=== PATIENT | female | born 1975 | race Caucasian/White ===

== ENCOUNTER → 2017-04-15 13:18 | Outpatient (CLI) | payer MEDICAID, SELFPAY ==
--- NOTE | 2017-04-15 13:27 | HPBI_ITS ---
MAMMOGRAPHY - BILATERAL DIAGNOSTIC REASON FOR EXAM: Female, 41 years old. Right breast pain for one month. PERTINENT HISTORY: Non-contributory. TECHNIQUE: Digital bilateral breast gabriela (3D mammographic acquisition) in the CC and MLO projections. 2-D mediolateral oblique (MLO) and craniocaudad (CC) views of both breasts were obtained. CAD: Full Field Digital Mammography with Computer Added Detection was performed. COMPARISON: None. Baseline examination. FINDINGS: Breast Composition: There are scattered areas of fibroglandular density. There are no dominant masses or suspicious calcifications. No other significant abnormalities are identified. HPBI/DIAG MAMM W/CAD, BILAT IMPRESSION: Negative diagnostic mammogram. With the patient's history of left breast pain, correlation with ultrasound is recommended. ASSESSMENT CATEGORY: BIRADS Category 0: Incomplete. Need additional imaging evaluation. A letter regarding these results will be sent to the patient by the facility within 30 days. Approximately 10% of breast cancers are not detected by mammography. A normal mammogram should not delay biopsy of a clinically suspicious abnormality. Electronically Signed: Justo Segundo MD at 14:42 EST Tel [phone], Service support ,
--- NOTE | 2017-04-15 13:41 | US_ITS ---
STUDY: ULTRASOUND BREAST - RIGHT REASON FOR EXAM: Female, 41 years old. Right breast pain. TECHNIQUE: Axial and longitudinal images of the RIGHT breast were performed with a high resolution ultrasound transducer. COMPARISON: Comparison is made with prior mammogram done earlier in the day. FINDINGS: RIGHT Breast: The upper outer quadrant of the right breast was examined by ultrasound. There is homogeneous fibroglandular tissue. No solid or cystic mass lesion is seen. US/Breast Limited Unilateral IMPRESSION: Unremarkable sonographic examination of the right breast. ASSESSMENT CATEGORY: BIRADS Category 1: Negative. A letter regarding these results will be sent to the patient by the facility within 30 days. Electronically Signed: Justo Segundo MD at 14:43 EST Tel [phone], Service support ,
== END ==
PROVIDERS: Family Provider Nurse Practitioner Family
DX: N64.4 Mastodynia (principal)
CPT/HCPCS: 76642; 77062; 77066; G0279

== ENCOUNTER → 2017-04-20 12:20 | Outpatient (CLI) | payer MEDICAID, SELFPAY ==
--- NOTE | 2017-04-20 12:28 | US_ITS ---
US Thyroid (eg thyroid, parathyroid, parotid) INDICATION: NODULE COMPARISON: None TECHNIQUE: Ultrasonographic grayscale and limited Doppler investigation of the thyroid gland FINDINGS: The right lobe of the thyroid measures 5.8 x 2.3 x 1.9 cm and is heterogenous. 2 nodules are seen, measuring 0.8 x 0.8 cm and 0.9 x 0.9 cm. The nodules are solid and appear well circumscribed. The left lobe of the thyroid measures 5.8 x 2.6 x 2.2 cm and is heterogenous. 2 solid nodules are identified measuring 1.7 x 1.8 and 2.0 x 1.3 cm. The nodules are solid with irregular margins. The isthmus measures 8 mm in thickness and contains 2 nodules, measuring 0.7 x 0.8 and 2.1 x 1.9 cm. US/Thyroid IMPRESSION: Prominent thyroid with multiple nodules suggestive of multinodular goiter. Further evaluation with nuclear medicine thyroid uptake scan is recommended. at 2013 Reported and signed by: Laney Ramirez MD Electronically Signed: Laney Ramirez MD at 19:12 EST Tel , Service support ,
--- NOTE | 2017-04-20 12:50 | US_ITS ---
US Pelvis Non-OB Complete INDICATION: ABNL UT BLEEDING COMPARISON: None TECHNIQUE: Ultrasonographic grayscale Doppler duplex investigation of the pelvic structures via transabdominal and transvaginal approach FINDINGS: The uterus is anteverted and measures 7.1 x 4.4 x 3.7 cm with a 4 mm endometrial stripe. The myometrium appears slightly heterogenous with a few small calcifications. No well-circumscribed fibroid is seen. The right ovary measures 2.8 x 2 x 2.1 cm and appears unremarkable with normal flow. The left ovary is surgically absent. There is no evidence of free fluid. US/Transvaginal Non- IMPRESSION: 4 mm endometrial stripe. A few myometrial calcifications without clearly circumscribed fibroid. Status post left oophorectomy. at 2017 Reported and signed by: Laney Ramirez MD Electronically Signed: Laney Ramirez MD at 19:15 EST Tel , Service support ,
== END ==
PROVIDERS: Family Provider Nurse Practitioner Family
DX: E04.1 Nontoxic single thyroid nodule (principal); N93.9 Abnormal uterine and vaginal bleeding, unspecified
CPT/HCPCS: 76536; 76830; 93976

== ENCOUNTER → 2017-05-25 11:21 | Outpatient (CLI) | payer MEDICAID, SELFPAY ==
--- NOTE | 2017-05-25 09:00 | ASPS_PTH ---
PATIENT: CLAIR MACIEL LOC: [facility] U#:[id number] AGE/SX: 49/F ROOM: RE05/25/[address]: Dr. Markus Gonzáles MD : 1975 BED: DIS: SPEC #: [id number] RECD: 05/25/17 11:17 STATUS: PATRICIA DONTAE #: [id number] JESS: 05/25/17 09:[address]: Markus Gonzáles DEPT: CYTOLOGY RECD BY: Ariadna Cunningham ENTERED: 05/25/17 12:07 SP TYPE: ASPIRATION OTHR DR: Trisha Conteh, MARKETING LIAISON-C Tissues: A - Thyroid isthmus B - Thyroid gland, NOS Procedures: Pap Stain (control) Special Stain Group II Cytology Other HEADER OPERATION: Ultrasound guided fine needle aspiration, left thyroid and isthmus PRE-OP DIAGNOSIS: Multinodular goiter E04.2 TISSUE SUBMITTED: A. Fine needle aspiration, thyroid isthmus (12 slides), B. Fine needle aspiration, left thyroid (10 slides) DIAGNOSIS CYTOLOGY A. Thyroid isthmus, FNA (smears): Consistent with benign colloid nodule. See cytology study and comment. B. Left thyroid, FNA (smears): Consistent with benign colloid nodule. See cytology study and comment. SJ:rg 05/26/17 COMMENT Immediate cytologic evaluation to determine adequacy is not applicable. Correlation with clinical, radiologic findings and appropriate follow up are necessary. Case has been reviewed in consultation with Dr. Quintanilla who concurs with the above diagnosis. IDC:AM CYTOLOGY STUDY Slides are reviewed. A. The specimen is adequate for evaluation. The specimen consists of abundant colloid and benign follicular cells. B. The specimen is adequate for evaluation. The specimen consists of benign follicular cells and colloid. A few clusters of follicular cells with mild atypia is noted, favor reactive atypia associated with benign colloid nodule. CYTOLOGY GROSS A. Received are 12 smears labeled with the patient's name and designated per the requisition as FNA, thyroid isthmus. Submitted for staining. B. Received are 10 smears labeled with the patient's name and designated per the requisition as FNA, left thyroid. Submitted for staining. / Cleve:usman 05/25/17 TC:5 CPT: 41619 x2
== END ==
PROVIDERS: Visit Provider Surgery
DX: E04.2 Nontoxic multinodular goiter (principal)
CPT/HCPCS: 88161; 88313

== ENCOUNTER → 2017-09-23 13:55 | Outpatient (CLI) | payer MEDICAID, SELFPAY ==
--- NOTE | 2017-09-24 20:02 | LEAS ---
Arterial Study - Arterial Study Arterial Study: This is a 41-year-old female with a history of diabetes mellitus, hypertension, and smoking. The patient presents with paresthesias and cramping pain in her lower extremities, made worse with ambulation. Suspecting the presence of atherosclerotic peripheral arterial occlusive disease, patient was brought to the noninvasive vascular laboratory at this time for the purpose of bilateral noninvasive lower extremity arterial assessment. Due to vertigo, the patient did not undergo an exercise portion of this study. Doppler signal assessment was used to evaluate the pulses at ankle level bilaterally. The posterior tibial and dorsalis pedis pulses were triphasic bilaterally. Segmental limb pressures were obtained bilaterally. The right ankle pressure, as determined by posterior tibial pulse, was measured at 144 mmHg. The right ankle pressure, as determined by dorsalis pedis pulse, was measured at 141 mmHg. The right digital pressure was measured at 103 mmHg. The left ankle pressure, as determined by posterior tibial pulse, was measured at 151 mmHg. The left ankle pressure, as determined by dorsalis pedis pulse, was measured at 147 mmHg. The left digital pressure was measured at 114 mmHg. Pulse-volume recordings were obtained bilaterally and segmentally. Waveform amplitudes appeared to be satisfactory at all levels bilaterally, including low thigh, calf, ankle, and digital levels. Resting ankle-brachial indices were calculated bilaterally. The resting right ankle-brachial index was calculated to be 1.08. The resting left ankle-brachial index was calculated to be 1.14. Digital-brachial indices were calculated bilaterally. The right digital-brachial index was calculated to be 0.77. The left digital-brachial index was calculated to be 0.86. Impression: Based upon the findings of this resting noninvasive lower extremity arterial study, there is no evidence of significant atherosclerotic peripheral arterial occlusive disease in the lower extremities bilaterally. Triphasic waveforms were noted at ankle level bilaterally. Resting ankle-brachial indices were bilaterally normal. Digital-brachial indices were also normal bilaterally. In summary, this represents a normal resting noninvasive lower extremity arterial study bilaterally.
--- NOTE | 2017-09-24 20:10 | LEAS_ITS ---
Arterial Study - Arterial Study Arterial Study: This is a 41-year-old female with a history of diabetes mellitus, hypertension, and smoking. The patient presents with paresthesias and cramping pain in her lower extremities, made worse with ambulation. Suspecting the presence of atherosclerotic peripheral arterial occlusive disease, patient was brought to the noninvasive vascular laboratory at this time for the purpose of bilateral noninvasive lower extremity arterial assessment. Due to vertigo, the patient did not undergo an exercise portion of this study. Doppler signal assessment was used to evaluate the pulses at ankle level bilaterally. The posterior tibial and dorsalis pedis pulses were triphasic bilaterally. Segmental limb pressures were obtained bilaterally. The right ankle pressure, as determined by posterior tibial pulse, was measured at 144 mmHg. The right ankle pressure, as determined by dorsalis pedis pulse, was measured at 141 mmHg. The right digital pressure was measured at 103 mmHg. The left ankle pressure, as determined by posterior tibial pulse, was measured at 151 mmHg. The left ankle pressure, as determined by dorsalis pedis pulse, was measured at 147 mmHg. The left digital pressure was measured at 114 mmHg. Pulse-volume recordings were obtained bilaterally and segmentally. Waveform amplitudes appeared to be satisfactory at all levels bilaterally, including low thigh, calf, ankle, and digital levels. Resting ankle-brachial indices were calculated bilaterally. The resting right ankle-brachial index was calculated to be 1.08. The resting left ankle- brachial index was calculated to be 1.14. Digital-brachial indices were calculated bilaterally. The right digital- brachial index was calculated to be 0.77. The left digital-brachial index was calculated to be 0.86. Impression: Based upon the findings of this resting noninvasive lower extremity arterial study, there is no evidence of significant atherosclerotic peripheral arterial occlusive disease in the lower extremities bilaterally. Triphasic waveforms were noted at ankle level bilaterally. Resting ankle-brachial indices were bilaterally normal. Digital-brachial indices were also normal bilaterally. In summary, this represents a normal resting noninvasive lower extremity arterial study bilaterally.
== END ==
DX: E11.42 Type 2 diabetes mellitus with diabetic polyneuropathy (principal); E11.59 Type 2 diabetes mellitus with other circulatory complications
CPT/HCPCS: 93923

== ENCOUNTER 2018-02-18 13:28 | Outpatient (RCR) | payer MEDICAID, SELFPAY ==
--- NOTE | 2018-02-18 14:12 | HP.PTEVAL ---
Patient's Visit Information CLAIR MACIEL is a 42 year old F referred to Physical Therapy by Nguyen Elias MD with a diagnosis of vertigo. Date of Evaluation: 02/18/18 Physical Therapist: Dawit Kirkpatrick, HOWIET, OCS, CSCS - Visit Plan Frequency: not needed. Plan: No skilled PT required at this time. Pt has dizzy lightheaded symptoms with exertion and up from supine. Suspicious that her HTN meds changed just prior but with her symptoms combined with lack of cardiac workup since onset and lack of scan of head, I have recommended she return to doctor for next medical step. she will be contacting her free clinic and doctor Jada for next step and possibly check with pharmacist regarding her recent meds change in October of last year just prior to this onset. - Subjective Findings: Constant dizzyness, worse with strenuous activity like steps or laundry or walking > one block. Dizzyness feels like she may pass out or feet give out and room spins. This usually happens when heart rate goes up. Sitting still is not a problem. Not as lightheaded standing as walking. This has been happening for 5 months insidiously noticing it on the steps. She has not done CT or MRI when approved. He wants that also. No heart testing this year but did have it tested after palpitations and pain last year and had EKG and it was fine. Has depresion and anxiety prior to this dizzyness. Sleep is not great. But not worse due to dizzyness. Spends day staying at home with books and puzzles. Cleans house but gets winded easily and feels dizzy. Sleeps alot. Doctor tested for vertigo at [facility] and gave her medicine. Then sent to Neuro. No falls, no AD needed. Lives with nephew and mother. - Objective Transfers adn gait are normal on firm flat surface. - B hallpike and roll test today. Oculomotor: - skew eye deviation. convergence normal. pursuit saccades normal and asymptomatic. VOR asymptomatic and good. no nystagmus with gaze or head shake. Notably today slightly lightheaded sitting up from supine and after climbing steps. Pt hasd blood pressure med change just prior to onset of dizzyness and this is suspicious to me as is the symptoms with exertion. - Balance Scores Functional Gait Assessment Score: 28 % Disability: 6.6700 CATSIB Score (Max score 120 seconds): 120 - Rehabilitation Potential Physical Therapy Diagnosis: lightheaded especially with exertion, non vestibular dizzyness. - Anticipated Interventions Thank you for the opportunity to evaluate your patient. For Medicare and Medicare HMO plans, please review the plan of care and approve it. It will need to be FAXED BACK to us at [phone] for Medicare purposes. For Medicare only, by signing this I certify the plan of care. Please let me know if there are questions or concerns regarding this plan of care. Physician Signature: Date:
== END 2018-02-18 15:18 | disposition home or self-care (01) ==
LOC: PT 13:28
PROVIDERS: Referring Provider Psychiatry & Neurology Neurology; Visit Provider Psychiatry & Neurology Neurology
DX: R42 Dizziness and giddiness (principal)
CPT/HCPCS: 97162

== ENCOUNTER → 2019-03-27 12:32 | Outpatient (CLI) | payer MEDICAID, SELFPAY ==
--- NOTE | 2019-03-27 12:40 | RAD_ITS ---
STUDY: X-RAY CHEST REASON FOR EXAM: Female, 43 years old. COUGH, CHEST CONGESTION; -- HYPERGLYCEMIA TECHNIQUE: PA and lateral views of the chest. COMPARISON: None. FINDINGS: The lungs are clear and expanded. Scattered calcified granulomas. There is no demonstrated pleural abnormality. Normal size heart. Normal mediastinum and bobby. Normal visualized pulmonary arteries. Normal visualized aortic arch and descending thoracic aorta. Normal visualized thoracic spine. Normal visualized ribs, clavicles, and shoulders. There is no demonstrated abnormality of the visualized soft tissue structures of the upper abdomen. RAD/Chest PA and Lateral IMPRESSION: Normal x-ray examination of the chest. Electronically Signed: Justo Segundo, at 13:16 EST , Service support ,
== END ==
PROVIDERS: Referring Provider Nurse Practitioner Family; Visit Provider Nurse Practitioner Family
DX: E11.65 Type 2 diabetes mellitus with hyperglycemia (principal)
CPT/HCPCS: 71046

== ENCOUNTER → 2020-05-31 12:49 | Outpatient (CLI) | payer MEDICAID, SELFPAY ==
[2020-04-18 13:04] VITALS: BMI 45.8
--- NOTE | 2020-05-31 12:54 | CT_ITS ---
STUDY: CT ABDOMEN AND PELVIS WITHOUT CONTRAST REASON FOR EXAM: Female, 44 years old. RUQ ABD TENDERNESS. 2 week history of bilateral abdominal pain. RADIATION DOSAGE (If Supplied By Facility): CTDIvol = ( 22.71 ) mGy, DLP = ( 1289.41 ) mGycm TECHNIQUE: Transaxial images were obtained from the dome of the diaphragm to the symphysis pubis without oral contrast, and without intravenous contrast. Sagittal and coronal images were reconstructed. Individualized dose optimization techniques were used for this CT. COMPARISON: None. FINDINGS: The visualized lung bases are unremarkable. The visualized portions of the heart are within normal limits. Normal liver. The patient is status post cholecystectomy. Normal spleen. Normal pancreas. Normal bilateral adrenal glands. 3.3 mm nonobstructive calculus in the upper pole calyx of the right kidney. Normal left kidney. There is a small hiatal hernia. Normal small intestine. Normal colon. The appendix is visualized and appears normal. There is scattered atherosclerotic calcification of the abdominal aorta, without a demonstrated aneurysm. Normal inferior vena cava. Normal retroperitoneum. Normal urinary bladder. Normal abdominal wall. Straightening of the normal lumbar lordosis. Mild degree of disc space narrowing and spondylosis. CT/Abdomen/Pelvis without Cont IMPRESSION: 3.3 mm nonobstructive calculus in the upper pole calyx of the right kidney. Electronically Signed: Justo Segundo MD at 13:48 EDT , Service support ,
== END ==
DX: R10.811 Right upper quadrant abdominal tenderness (principal)
CPT/HCPCS: 74176

== ENCOUNTER → 2020-09-03 15:56 | Outpatient (CLI) | payer MEDICAID, SELFPAY ==
[2020-09-03 15:20] VITALS: BMI 45.8
[2020-09-03 17:06] LABS: Vitamin B12 379 pg/mL (211-911)
[2020-09-03 17:13] LABS: ALB/GLOB Ratio 0.9 RATIO (0.9-2.4); AST(SGOT) 21 U/L (15-37); Alanine Aminotransfer ALT/SGPT 37 U/L (13-56); Albumin, Serum 3.7 g/dL (3.2-5.0); Alkaline Phosphatase 68 U/L (45-117); Anion Gap 8 (5-15); BUN 13 mg/dL (7-18); BUN/Creat Ratio 12.4 RATIO (10-20); Calcium,Total 9.4 mg/dL (8.5-10.1); Chloride 102 mmol/L (98-107); Cholesterol 178 mg/dL (200); Creatinine, Serum 1.05 mg/dL (0.55-1.02); EST Glomerular Filtration Rate 60 mL/min (>60); Est Glom Filt Rate - Afr Amer 73 mL/min (>60); Glucose 212 mg/dL (74-106); High Density Lipoprotein 35 mg/dL; Potassium 3.8 mmol/L (3.5-5.1); Protein, Total 7.7 g/dL (6.4-8.2); Sodium Level 136 mmol/L (136-145); T4 Free Direct 1.32 ng/dL (0.76-1.46); Thyroid Stim Hormone (TSH) 0.38 uIU/mL (0.358-3.74); Triglycerides 297 mg/dL; Very Low Density Lipoprotein 59 mg/dL (5-40)
== END ==
PROVIDERS: Referring Provider Internal Medicine Endocrinology, Diabetes & Metabolism; Visit Provider Internal Medicine Endocrinology, Diabetes & Metabolism
DX: G62.9 Polyneuropathy, unspecified (principal); E03.9 Hypothyroidism, unspecified; E11.8 Type 2 diabetes mellitus with unspecified complications; E66.01 Morbid (severe) obesity due to excess calories; Z68.42 Body mass index [BMI] 45.0-49.9, adult
CPT/HCPCS: 36415; 80053; 80061; 82607; 84439; 84443

== ENCOUNTER → 2020-10-25 13:47 | Outpatient (CLI) | payer MEDICAID, SELFPAY ==
[2020-10-25 10:41] LABS: Absolute Lymphocyte Count 2.88 X10^3/uL (0.83-4.51); Absolute Neutrophil Count 5.3 X10^3/uL (2.0-7.7); Basophil# 0.08 X10^3/uL; Basophil% 0.8 % (0-1); Eosinophil# 0.73 X10^3/uL; Eosinophils% 7.2 % (0-5); Hematocrit 35.8 % (37-47); Hemoglobin 10.8 g/dL (12.0-15.0); Lymphocyte # 2.88 X10^3/ul (0.83-4.51); Lymphocyte % 28.4 % (19-41); Mean Corp Hgb Conc 30.2 g/dL (32-36); Mean Corpuscular Hgb 25.9 pg (27.0-32.0); Mean Corpuscular Volume 85.9 fL (81-99); Mean Platelet Vol. 10.1 fl (6.2-12.0); Monocyte# 0.73 X10^3/uL; Monocyte% 7.2 % (0-10); NRBC Flagged by Analyzer 0 % (0-5); Neutrophil # 5.27 X10^3/uL (2.7-7.7); Platelet Count 320 K/mm3 (150-450); RBC Distribution Width CV 14.7 % (11.6-14.6); RBC Distribution Width SD 46.4 fl (35.1-43.9); Red Blood Count 4.17 M/mm3 (4.2-5.4); White Blood Count 10.1 K/mm3 (4.4-11.0)
[2020-10-25 11:12] LABS: ALB/GLOB Ratio 0.8 RATIO (0.9-2.4); AST(SGOT) 20 U/L (15-37); Alanine Aminotransfer ALT/SGPT 39 U/L (13-56); Albumin, Serum 3.3 g/dL (3.2-5.0); Alkaline Phosphatase 56 U/L (45-117); Anion Gap 8 (5-15); BUN 9 mg/dL (7-18); BUN/Creat Ratio 10.8 RATIO (10-20); Calcium,Total 9.3 mg/dL (8.5-10.1); Chloride 100 mmol/L (98-107); Creatinine, Serum 0.84 mg/dL (0.55-1.02); EST Glomerular Filtration Rate 78 mL/min (>60); Est Glom Filt Rate - Afr Amer 95 mL/min (>60); Globulin 3.9 g/dL (2.2-4.2); Glucose 236 mg/dL (74-106); Lipase 193 U/L (73-393); Potassium 3.8 mmol/L (3.5-5.1); Protein, Total 7.2 g/dL (6.4-8.2); Sodium Level 136 mmol/L (136-145)
--- NOTE | 2020-10-25 13:49 | CT_ITS ---
STUDY: CT ABDOMEN AND PELVIS WITH CONTRAST REASON FOR EXAM: Female, 44 years old. RUQ/RLQ PAIN RADIATION DOSAGE (If Supplied By Facility): CTDIvol = ( 23.68 ) mGy, DLP = ( 1372.54 ) mGycm TECHNIQUE: Transaxial images were obtained from the dome of the diaphragm to the symphysis pubis with oral contrast. Oral and amp; IV Readi-CAT and amp; 100mL Isovue-300 was administered. Sagittal and coronal images were reconstructed. Individualized dose optimization techniques were used for this CT. COMPARISON: Comparison is made with prior examination dated 05/31/2020. FINDINGS: The visualized lung bases are unremarkable. The visualized portions of the heart are within normal limits. There is decreased attenuation of the liver consistent with steatosis. Mild hepatomegaly. The patient is status post cholecystectomy. Normal spleen. Normal pancreas. Normal bilateral adrenal glands. Stable 3 mm nonobstructive calculus in the upper pole calyx of the right kidney. Normal left kidney. There is a small hiatal hernia. Normal small intestine. Normal colon. The appendix is visualized and appears normal. There is scattered atherosclerotic calcification of the abdominal aorta, without a demonstrated aneurysm. Normal inferior vena cava. Normal retroperitoneum. Normal urinary bladder. Normal abdominal wall. Mild degree of disc space narrowing and spondylosis. CT/Abdomen/Pelvis WITH Contrast IMPRESSION: Mild hepatomegaly and diffuse fatty infiltration of the liver. Nonobstructive 3 mm calculus in the upper pole calyx of the right kidney. Electronically Signed: Justo Segundo MD at 15:07 EDT , Service support ,
[2020-10-25 14:30] LABS: CREATININE FINGERSTICK 1.1 mg/dL (0.55-1.02)
[2020-10-27 21:11] LABS: ANTINUCLEAR ANTIBODIES DIRECT Positive (Negative)
== END ==
PROVIDERS: Referring Provider Nurse Practitioner Adult Health; Visit Provider Nurse Practitioner Adult Health
DX: R10.811 Right upper quadrant abdominal tenderness (principal); R60.9 Edema, unspecified; R21 Rash and other nonspecific skin eruption
CPT/HCPCS: 36415; 74177; 80053; 83690; 85025; 86038; Q9967; A4216

== ENCOUNTER → 2020-10-29 14:45 | Outpatient (CLI) | payer MEDICAID, SELFPAY ==
[2020-10-29 17:09] LABS: Iron 53 ug/dL (50-170); Iron Binding Capacity,Total 369 ug/dL (250-450); PERCENT IRON SATURATION 14.4 % (15.0-55.0)
[2020-10-31 21:05] LABS: Transferrin 315 mg/dL (192-364)
== END ==
PROVIDERS: Referring Provider Nurse Practitioner Adult Health; Visit Provider Nurse Practitioner Adult Health
DX: D64.9 Anemia, unspecified (principal)
CPT/HCPCS: 36415; 83540; 83550; 84466

== ENCOUNTER → 2020-12-24 09:26 | Outpatient (CLI) | payer MEDICAID, SELFPAY ==
[2020-12-25 11:09] LABS: SJOGREN'S Anti-SS-A test < 0.2 AI (0.0-0.9); SJOGREN'S Anti-SS-B test < 0.2 AI (0.0-0.9)
[2020-12-25 13:48] LABS: Anti-dsDNA Ab 10 IU/mL (0-9)
[2020-12-25 14:23] LABS: Anti-Smooth Muscle ABS 4 Units (0-19)
== END ==
DX: R74.8 Abnormal levels of other serum enzymes (principal); R21 Rash and other nonspecific skin eruption; L80 Vitiligo
CPT/HCPCS: 36415; 83516; 86225; 86235

== ENCOUNTER → 2021-08-14 | Outpatient (CLI) | payer MEDICAID, SELFPAY ==
[2021-08-14 12:46] LABS: Absolute Lymphocyte Count 2.44 X10^3/uL (0.83-4.51); Absolute Neutrophil Count 4.7 X10^3/uL (2.0-7.7); Basophil# 0.01 X10^3/uL; Basophil% 0.1 % (0-1); Eosinophil# 0.45 X10^3/uL; Eosinophils% 5.4 % (0-5); Hematocrit 37.4 % (37-47); Hemoglobin 11.8 g/dL (12.0-15.0); Lymphocyte # 2.44 X10^3/ul (0.83-4.51); Lymphocyte % 29.5 % (19-41); Mean Corp Hgb Conc 31.6 g/dL (32-36); Mean Corpuscular Hgb 27.4 pg (27.0-32.0); Mean Platelet Vol. 10.5 fl (6.2-12.0); Monocyte# 0.57 X10^3/uL; Monocyte% 6.9 % (0-10); NRBC Flagged by Analyzer 0 % (0-5); Neutrophil # 4.68 X10^3/uL (2.7-7.7); Neutrophil % 56.8 % (47-70); Platelet Count 316 K/mm3 (150-450); RBC Distribution Width CV 14.4 % (11.6-14.6); RBC Distribution Width SD 45.3 fl (35.1-43.9); White Blood Count 8.3 K/mm3 (4.4-11.0)
[2021-08-14 13:21] LABS: Vitamin D,25 Hydroxy 26.7 ng/mL
[2021-08-14 13:34] LABS: ALB/GLOB Ratio 0.9 RATIO (0.9-2.4); AST(SGOT) 26 U/L (15-37); Alanine Aminotransfer ALT/SGPT 32 U/L (13-56); Albumin, Serum 3.4 g/dL (3.2-5.0); Alkaline Phosphatase 56 U/L (45-117); Anion Gap 10 (5-15); BUN 12 mg/dL (7-18); BUN/Creat Ratio 15.2 RATIO (10-20); Calcium,Total 9.3 mg/dL (8.5-10.1); Chloride 102 mmol/L (98-107); Creatinine, Serum 0.79 mg/dL (0.55-1.02); EST Glomerular Filtration Rate 83 mL/min (>60); Est Glom Filt Rate - Afr Amer 100 mL/min (>60); Globulin 3.6 g/dL (2.2-4.2); Glucose 161 mg/dL (74-106); Potassium 3.6 mmol/L (3.5-5.1); Sodium Level 139 mmol/L (136-145); T4 Free Direct 1.02 ng/dL (0.76-1.46); Thyroid Stim Hormone (TSH) 2.94 uIU/mL (0.358-3.74)
== END | disposition home or self-care (01) ==
LOC: BIMLAB 11:36
PROVIDERS: Referring Provider Internal Medicine Endocrinology, Diabetes & Metabolism; Visit Provider Internal Medicine Endocrinology, Diabetes & Metabolism
DX: E11.42 Type 2 diabetes mellitus with diabetic polyneuropathy (principal); I10 Essential (primary) hypertension; E66.9 Obesity, unspecified; E55.9 Vitamin D deficiency, unspecified
CPT/HCPCS: 36415; 80053; 82306; 84439; 84443; 85025

== ENCOUNTER 2021-11-20 14:31 | Emergency (ER) | payer MEDICAID, SELFPAY ==
[2021-11-20 14:32] VITALS: BP 179/107; PULSE 79; RESP 18; TEMP 36.6; O2SAT 97; BMI 44.1
--- NOTE | 2021-11-20 14:41 | RAD_ITS ---
STUDY: X-RAY - LEFT SHOULDER REASON FOR EXAM: Female, 46 years old. Shoulder pain. TECHNIQUE: 4 view(s) of the shoulder. COMPARISON: None. FINDINGS: Normal glenohumeral articulation. Normal acromioclavicular joint. Normal acromion. Normal humeral head and visualized proximal humerus. There is periarticular soft tissue calcification consistent with a calcific tendinitis. Normal visualized pulmonary apex. RAD/Shoulder min 2 Views IMPRESSION: Mild degree of calcific tendinitis. Electronically Signed: Justo Segundo MD at 14:56 EDT ,
--- NOTE | 2021-11-20 15:58 | EX.ED.UPPERE ---
HPI History of Present Illness Chief Complaint: Upper Extremity Injury Narrative Narrative: Patient with past medical history of diabetes, neuropathy, hypertension, presents with left shoulder pain that she has had for the last 3 to 4 days. 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 She has pain in her left shoulder area that is relieved by placing her arm above her head however. She states that when her arm is dangling to the side and it is pulling, she gets sharp pain, and also pain with certain movements. No fevers or chills. No other symptoms. She was taking Tylenol without relief but took an equate arthritis which did help with her pain somewhat. She is right-hand dominant. [facility] Medical History Acid reflux Alcohol abuse Anxiety Back problem Bone fracture Chronic bronchitis Chronic headaches Depression Diabetes Diarrhea Drug abuse Edema Gastroparesis H/O emotional problems H/O urinary tract infection Hypothyroidism Nausea Neuropathy PCOS (polycystic ovarian syndrome) Seasonal allergies Sleep apnea Thyroid nodule Vitiligo Vomiting Home Medications albuterol sulfate 90 mcg/actuation aerosol inhaler (Ventolin HFA) 2 puff inhalation Q6H 05/12/17 [History Last Taken Unknown] carvedilol 12.5 mg tablet 12.5 mg PO BID 05/12/17 [History Last Taken Unknown] gabapentin 300 mg capsule 300 mg PO TID 07/03/19 [History Last Taken Unknown] flash glucose scanning reader (FreeVidyoyle Yudy 2 [place]) #1 ea 11/30/19 [Rx Last Taken Unknown] glucose 4 gram chewable tablet 4 g PO Q15M PRN hypoglycemia #90 tabs 02/01/20 [Rx Last Taken Unknown] citalopram 40 mg tablet 40 mg PO DAILY 04/18/20 [History Last Taken Unknown] compr.stocking,knee,long,large #2 ea 04/18/20 [Rx Last Taken Unknown] levothyroxine 125 mcg tablet 125 mcg PO DAILY #30 tabs 07/09/20 [Rx Last Taken Unknown] insulin glargine 100 unit/mL (3 mL) subcutaneous pen (Lantus Solostar U-100 Insulin) 80 unit (0.8 mL) subcut DAILY #24 mL 09/06/20 [Rx Last Taken Unknown] ferrous sulfate 325 mg (65 mg iron) tablet ea PO 12/27/20 [History Last Taken Unknown] insulin aspart U-100 100 unit/mL (3 mL) subcutaneous pen (Novolog Flexpen U-100 Insulin aspart) 40 unit (0.4 mL) subcut TID #36 mL 01/13/21 [Rx Last Taken Unknown] vitamin B complex (B Complex-Vitamin B12 tablet) 1 tab PO DAILY #30 tabs 02/09/21 [Rx Last Taken Unknown] pen needle, diabetic 32 gauge x 5/32 (BD Ultra-Fine Angela Pen Needle) #150 ea 04/29/21 [Rx Last Taken Unknown] cholecalciferol (vitamin D3) 1,250 mcg (50,000 unit) capsule 1,250 mcg PO QWEEK #4 caps 08/14/21 [Rx Last Taken Unknown] losartan 100 mg tablet 100 mg PO DAILY #30 tabs 08/14/21 [Rx Last Taken Unknown] amitriptyline 50 mg tablet 50 mg PO QHS 09/03/21 [History Last Taken Unknown] furosemide 20 mg tablet 30 mg PO BID 09/03/21 [History Last Taken Unknown] metformin 1,000 mg tablet 1,000 mg PO DAILY 09/03/21 [History Last Taken Unknown] ondansetron HCl 8 mg tablet (Zofran) 8 mg PO .prn 09/03/21 [History Last Taken Unknown] pantoprazole 40 mg tablet,delayed release (Protonix) 40 mg PO DAILY 09/03/21 [History Last Taken Unknown] BinaxNOW COVID-19 Ag Card (COVID-19 antigen test) #1 ea 09/11/21 [Rx Last Taken Unknown] Trulicity 3 mg/0.5 mL subcutaneous pen injector (dulaglutide) 3 mg (0.5 mL) subcut QWEEK #2 mL 11/07/21 [Rx Last Taken Unknown] potassium chloride 10 mEq capsule,extended release ea PO 11/07/21 [History Last Taken Unknown] flash glucose sensor (FreeStyle Yudy 2 Sensor kit) #2 ea 11/10/21 [Rx Last Taken Unknown] cyclobenzaprine 10 mg tablet 10 mg PO TID PRN muscle spasm #20 tabs 11/20/21 [Rx Last Taken Unknown] Allergy/AdvReac Type Severity Reaction Status Date / Time aspirin Allergy Unknown Unknown Verified 11/20/21 14:34 Family History Father Diabetes Heart disease Hypertension COVID Mother Heart disease Hypertension Ulcer Sister Autoimmune disease vitiligo and lupus Diabetes Surgical History History of salpingectomy S/P cholecystectomy S/P left knee arthroscopy S/P removal of left ovary S/P thyroid biopsy (~05/2017) Social History household members: family current occupational status: employed 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 HEENT: No sore throat. No neck pain. No loss of vision. No rhinorrhea. Cardiovascular: No chest pain. No palpitations. No pedal edema. Respiratory: No cough, no shortness of breath. Abdominal: No abdominal pain. No nausea. No vomiting. Genitourinary: No dysuria. No hematuria. Musculoskeletal: No myalgias. Left shoulder pain worse with certain movements, and with arm at side. Neurologic: No headaches. No dizziness. No lightheadedness. Skin: No rash. No change in color. Psychiatric: No depression. No anxiety. EXAM Physical Exam Narrative Exam Narrative: Afebrile. Vital signs noted. HEENT: Normocephalic. Atraumatic. PERRL, EOMI. Neck soft and supple. No point tenderness or step off. Cardiovascular: Regular rate and rhythm. No murmurs, rubs, or gallops appreciated. Respiratory: No tachypnea. Lungs clear to auscultation bilaterally. Gastrointestinal: Abdomen soft, nontender, with normoactive bowel sounds. No rebound or guarding. Neurological: Awake. Alert. Nonfocal, nonlateralizing. Skin: No rash. Normal color. No pallor. Musculoskeletal: No pedal edema. Full range of motion extremities. Neurovascular intact left arm with palpable radial pulse. Full range of motion and able to raise arm above head but mild difficulty reaching behind. Const Vital Signs: 11/20/21 14:32 Temperature 97.8 F Temperature Source Temporal Pulse Rate 79 Respiratory Rate 18 Blood Pressure 179/107 H Blood Pressure Mean 131 Pulse Ox 97 Oxygen Delivery Method Room Air MDM MDM MDM Narrative Medical decision making narrative: I do feel that the patient may have more of a rotator cuff injury/sprain versus tendinitis as she does have point tenderness in the bicipital groove of the tendon. X-rays were obtained of the left shoulder, and interpreted by myself. There is evidence of calcific tendinitis. At this point in time, she will take [id number] analgesics. She was told not to be on long-term NSAIDs as she is diabetic. I did write her for Flexeril to take as needed. She was told that if she does elect to use a sling for comfort that she should exercise her shoulder few times a day to prevent adhesive capsulitis. She will follow-up with her primary care physician for possible referral to physical therapy versus orthopedics. Disposition is discharged home in stable condition. Radiography Diagnostic Testing: Clinical Impression(s) from Imaging Studies Shoulder X-Ray 11/20/21 14:41 IMPRESSION: Mild degree of calcific tendinitis. Electronically Signed: Justo Segundo MD at 14:56 EDT , Discharge Plan Triage Chief Complaint: Upper Extremity Injury ED Provider: Armando Philippe Dx/Rx/DC Orders Clinical Impression: Calcific tendonitis of left shoulder, Acute pain of left shoulder Instructions: ED Tendonitis, ED Shoulder Pain, Uncertain Cause Prescriptions: New cyclobenzaprine 10 mg tablet 10 mg PO TID PRN (Reason: muscle spasm) Qty: 20 0RF No Action carvedilol 12.5 mg tablet 12.5 mg PO BID albuterol sulfate [Ventolin HFA] 90 mcg/actuation HFA aerosol inhaler 2 puff INHALATION Q6H ondansetron HCl [Zofran] 8 mg tablet 8 mg PO .prn pantoprazole [Protonix] 40 mg tablet,delayed release (DR/EC) 40 mg PO DAILY gabapentin 300 mg capsule 300 mg PO TID citalopram 40 mg tablet 40 mg PO DAILY Label Comments: TAKE 1 TABLET BY MOUTH EVERY DAY (DME) compr.stocking,knee,long,large Misc See Rx Instructions .ROUTE .MEDSUPPLY Qty: 2 0RF Rx Instructions: low compression 30 mm or less amitriptyline 50 mg tablet 50 mg PO QHS Label Comments: TAKE 1 TABLET BY MOUTH EVERY DAY ferrous sulfate 325 mg (65 mg iron) tablet PO furosemide 20 mg tablet 30 mg PO BID losartan 100 mg tablet 100 mg PO DAILY Qty: 30 6RF potassium chloride 10 mEq capsule, extended release PO Label Comments: TAKE 1 CAPSULE BY MOUTH NEEDED IF A FUROSEMIDE/LASIX WAS TOOK THAT DAY Trulicity 3 mg/0.5 mL pen injector 3 mg subcut QWEEK Qty: 2 5RF metformin 1,000 mg tablet 1,000 mg PO DAILY (DME) FreeStyle Yudy 2 [place] Misc See Rx Instructions .ROUTE .MEDSUPPLY Qty: 1 0RF Rx Instructions: As directed glucose 4 gram tablet,chewable 4 g PO Q15M PRN (Reason: hypoglycemia) Qty: 90 3RF Rx Instructions: until symptoms of low blood sugar are controlled levothyroxine 125 mcg tablet 125 mcg PO DAILY Qty: 30 11RF Lantus Solostar U-100 Insulin 100 unit/mL (3 mL) insulin pen 80 unit SC DAILY Qty: 24 6RF insulin aspart U-100 [Novolog Flexpen U-100 Insulin] 100 unit/mL (3 mL) insulin pen 40 unit SC TID Qty: 36 6RF vitamin B complex [B Complex-Vitamin B12] Tablet 1 tab PO DAILY Qty: 30 4RF (DME) pen needle, diabetic [BD Ultra-Fine Angela Pen Needle] 32 gauge x 5/32 needle See Rx Instructions .ROUTE .MEDSUPPLY Qty: 150 8RF Rx Instructions: 4 times daily cholecalciferol (vitamin D3) 1,250 mcg (50,000 unit) capsule 1,250 mcg PO QWEEK Qty: 4 6RF (DME) BinaxNOW COVID-19 Ag Card Kit See Rx Instructions .Route Qty: 1 0RF Rx Instructions: As directed (DME) FreeStyle Yudy 2 Sensor Kit See Rx Instructions .ROUTE .[facility] Qty: 2 12RF Rx Instructions: As directed Primary Care Provider: [facility] [place] Referrals: [facility] Liz[place],Soh Frances [Primary Care Provider] - 1 Week if not improving Disposition Disposition: Home, Self Care
== END 2021-11-20 16:11 | disposition home or self-care (01) ==
LOC: ED 16:08
PROVIDERS: Emergency Provider Emergency Medicine; PCP Internal Medicine; Visit Provider Emergency Medicine
DX: M75.32 Calcific tendinitis of left shoulder (principal); E11.40 Type 2 diabetes mellitus with diabetic neuropathy, unspecified; F15.90 Other stimulant use, unspecified, uncomplicated; F17.200 Nicotine dependence, unspecified, uncomplicated; I10 Essential (primary) hypertension; E03.9 Hypothyroidism, unspecified
CPT/HCPCS: 73030; 99282

== ENCOUNTER → 2022-01-19 | Outpatient (CLI) | payer MEDICAID, SELFPAY ==
--- NOTE | 2022-01-19 12:15 | BI_ITS ---
MAMMOGRAPHY - BILATERAL SCREENING REASON FOR EXAM: Female, 46 years old. Routine annual screening examination. PERTINENT HISTORY: Non-contributory. TECHNIQUE: Digital bilateral breast abena (3D mammographic acquisition) in the CC and MLO projections. 2-D mediolateral oblique (MLO) and craniocaudad (CC) views of both breasts were obtained. CAD: Full Field Digital Mammography with Computer Added Detection was performed. COMPARISON: Comparison is made with prior examination dated 04/15/2017. FINDINGS: Breast Composition: There are scattered areas of fibroglandular density. There are no dominant masses or suspicious calcifications. Stable benign-appearing bilateral axillary lymph nodes. No other significant abnormalities are identified. There has been no significant change since the prior study. BI/SCRN MAMM (CAD)W/ABENA BILAT IMPRESSION: Stable bilateral screening mammogram. Yearly follow-up mammogram recommended. (A) ASSESSMENT CATEGORY: BIRADS Category 2: Benign. A letter regarding these results will be sent to the patient by the facility within 30 days. Approximately 10% of breast cancers are not detected by mammography. A normal mammogram should not delay biopsy of a clinically suspicious abnormality. [id number] Electronically Signed: Justo Segundo MD at 13:20 EST ,
--- NOTE | 2022-01-19 12:41 | US_ITS ---
EXAM: US SOFT TISSUES HEAD AND NECK, THYROID CLINICAL INDICATION: TI RADS please, compare 2018 TECHNIQUE: Almaguer scale and color doppler imaging was performed of the thyroid gland. This report was created using [employer] report generation technology. COMPARISON: US Thyroid dated 04/20/2017 FINDINGS: LEFT THYROID LOBE: Left thyroid lobe measures 5.8 x 3.0 x 2.5 cm and also demonstrates a multinodular heterogeneous echotexture dominant 2.2 cm nodule within the lower pole of the left lobe is unchanged in size and echogenicity. This nodule is solid or almost completely solid, hyperechoic or isoechoic, [id number], smoothly marginated and contains no echogenic foci. TI-RADS points: 3. TI-RADS category: TR3. This nodule is mildly suspicious. Recommend follow-up thyroid ultrasounds in 2 years. RIGHT THYROID LOBE: Right thyroid lobe measures 5.5 x 2.1 x 1.9 cm with diffusely heterogeneous somewhat nodular echotexture. Calcified 9 mm lesion arising from the lower pole of the right lobe is unchanged. This nodule is of uncertain composition due to calcification, is of indeterminate echogenicity, [id number] and smoothly marginated. TI-RADS points: 3. TI-RADS category: TR3. This nodule is mildly suspicious but no FNA or follow-up is necessary given the small size of this nodule. ISTHMUS: 7 mm concentrically calcified nodule involving the left side of the thyroid isthmus is also unchanged. US/Thyroid IMPRESSION: Multinodular thyroid gland. No significant interval change. Follow-up in 2 years recommended. Electronically Signed: Van Martinez MD at 8:08 EST ,
== END | disposition home or self-care (01) ==
LOC: OPBI 12:12
PROVIDERS: PCP Internal Medicine; Visit Provider Internal Medicine
DX: Z12.31 Encounter for screening mammogram for malignant neoplasm of breast (principal); E04.1 Nontoxic single thyroid nodule
CPT/HCPCS: 76536; 77063; 77067

== ENCOUNTER → 2022-09-03 | Outpatient (CLI) | payer BC, MEDICAID, SELFPAY ==
[2022-09-03 18:13] LABS: Mucous, Urine 0 SEEN /hpf (<or=2+); Red Blood Cells-Urine 0 SEEN /hpf (0-5)
[2022-09-03 18:29] LABS: Color, Urine Yellow (Yellow); Glucose, Dipstick Normal (Normal); Ketone-Dipstick Negative (Negative); Leukocyte Esterase-Dipstick Negative /ul (Negative); Nitrite-Dipstick Negative (Negative); Occult Blood-Urine 25 /ul (Negative); Protein-Dipstick Negative (Negative); Specific Gravity, Urine 1.015 (1.002-1.030); Urine Bilirubin Dipstick Negative (Negative); Urine Clarity Sl. Cloudy (Clear); Urine Urobilinogen Normal (Normal)
[2022-09-03 19:19] LABS: Bacteria 1+ /hpf (None Seen); Squamous Epithelial Cells - UA 5-10 SEEN /hpf (5-10); White Blood Cells 0-5 SEEN /hpf (0-5)
== END | disposition home or self-care (01) ==
PROVIDERS: PCP Internal Medicine; Visit Provider Physician Assistant Surgical
DX: R30.0 Dysuria (principal)
CPT/HCPCS: 81001; 87077; 87086; 87088; 87186

== ENCOUNTER → 2023-02-23 | Outpatient (CLI) | payer BC, MEDICAID, SELFPAY ==
[2023-02-23 17:31] LABS: Vitamin D,25 Hydroxy 45.5 ng/mL
[2023-02-23 17:41] LABS: ALB/GLOB Ratio 1.1 RATIO (0.9-2.4); AST(SGOT) 23 U/L (15-37); Alanine Aminotransfer ALT/SGPT 29 U/L (13-56); Albumin, Serum 3.8 g/dL (3.2-5.0); Alkaline Phosphatase 58 U/L (45-117); Anion Gap 9 (5-15); BUN 12 mg/dL (7-18); BUN/Creat Ratio 12.2 RATIO (10-20); Calcium,Total 8.8 mg/dL (8.5-10.1); Chloride 103 mmol/L (98-107); Cholesterol 194 mg/dL (200); Creatinine, Serum 0.98 mg/dL (0.55-1.02); EST Glomerular Filtration Rate 64 mL/min (>60); Est Glom Filt Rate - Afr Amer 77 mL/min (>60); Globulin 3.5 g/dL (2.2-4.2); Glucose 298 mg/dL (74-106); High Density Lipoprotein 48 mg/dL; Protein, Total 7.3 g/dL (6.4-8.2); Sodium Level 136 mmol/L (136-145); T4 Free Direct 0.97 ng/dL (0.76-1.46); Thyroid Stim Hormone (TSH) 1.28 uIU/mL (0.358-3.74); Triglycerides 236 mg/dL; Very Low Density Lipoprotein 47 mg/dL (5-40)
--- OUTSIDE RECORDS SUMMARY | 2023-02-23 17:43 | XMS RPT_ITS | CCD ---
Author Name Unknown Address [address] [place] [address] Organization [facility] Care Team Providers Care Photoengraving Helper Name Role Phone JOSHUA, JAMAL NABI Referring Unavailable JOSHUA, JAMAL N Referring Unavailable [facility] Primary Care Unavailable ERIKA HERNANDEZ Attending Unavailab loc Pollack LPN, Alma Rosa Mccauley Unavailable Unavailable Alma Rosa Pollack LPN Unavailable Unavailable HEAD SOLE SEWER HAND-PROOF CLERK, DUSTY Primary Care Physician ADILENE DON-PROOF CLERK, DUSTY Primary Care Physician JUANITO KAHN, DR WADE Yoo Attending Unavai taylor HEAD APRN-PROOF CLERK, DUSTY Primary Care Unavailab Lindsay KAHN, GEETA Attending Unavailable HEAD SOLE SEWER HAND-PROOF CLERK, DUSTY Primary Care UnavailDINH Khan MD Attending Unavailable HEAD SOLE SEWER HAND-PROOF CLERK, DUSTY Primary Care Unavailab Lindsay KAHN, GEETA Attending Unavailable HEAD SOLE SEWER HAND-PROOF CLERK, DUSTY Primary Care Unavailab loc Allergies Allergy Classification Reported Allergen(s) Allergy Type Date of Onset Reaction(s) Facility (8 sources) Aspirin; Translations: [ASPIRIN] Drug Allergy 05-06-2018 [facility] Repository (2 sources) ADULT ASPIRIN EC LOW STRENGTH drug allergy 05-07-2016 [facility] Work Phone: Medications Current Medications Medication Drug Class(es) Dates Sig (Normalized) Sig (Original) albuterol MDI (90 mcg/inh) [facility] free inhalation aerosol (5 sources) Start: 10-18-2018 take 2 puff(s) by inhalation every four hours as needed for cough albuterol MDI (90 mcg/inh) CFC free inhalation aerosol INHALE 2 PUFFS EVERY 4 HOURS NEEDED FOR COUGH OR SHORT BREATHS Start Date: 10/18/18 Status: Ordered amitriptyline hydrochloride 25 mg oral tablet (5 sources) Tricyclic Antidepressant Start: 10-04-2018 take 1 tablet by mouth twice daily amitriptyline 25 mg oral tablet TAKE 1 TABLET BY MOUTH TWICE A DAY Start Date: 10/04/18 Status: Ordered benzonatate 100 mg oral capsule (6 sources) Non-narcotic Antitussive Start: 02-02-2022 End: 02-09-2022 Tessalon Perles 100 mg oral capsule Dose : 100 mg = 1 cap(s), Oral, TID, PRN as needed for cough, X 7 day(s), # 21 cap(s), 0 Refill(s), 02/09/22 18:31:00 EST Start Date: 02/02/22 Stop Date: 02/09/22 Status: Ordered Completed/Discontinued Medications Medication Drug Class(es) Dates Sig (Normalized) Sig (Original) ALPRAZolam 0.5 mg oral tablet (2 sources) Benzodiazepine take 1 tablet by mouth three times daily XANAX 0.5 MG TABS One tablet by mouth three times daily ALPRAZOLAM [id number] Jyoti Amlaguer LPN amLODIPine 5 mg oral tablet (2 sources) Dihydropyridine Calcium Channel Mandy take 1 tablet by mouth once daily AMLODIPINE BESYLATE 5 MG TABS One tablet by mouth daily AMLODIPINE BESYLATE [id number] Jyoti Almaguer LPN azithromycin 250 mg oral tablet (5 sources) Macrolide Antimicrobial Start: 03-17-2019 End: 03-22-2019 take 1 tablet by mouth once daily Zithromax Z-Hi 250 mg oral tablet 1 dose, Oral, Daily, # 6 tab(s), 0 Refill(s) Start Date: 03/17/19 Stop Date: 03/22/19 Status: Ordered 12 hr buPROPion hydrochloride 150 mg extended release oral tablet (2 sources) Aminoketone take 1 tablet by mouth once daily WELLBUTRIN SR 150 MG [id number] One tablet by mouth daily BUPROPION HCL [id number] Jyoti Almaguer LPN FLUoxetine 40 mg oral capsule (2 sources) Serotonin Reuptake Inhibitor take 1 tablet by mouth once daily FLUOXETINE HCL 40 MG CAPS One tablet by mouth daily FLUOXETINE HCL [id number] Jyoti Almaguer LPN 1.5 ml insulin glargine 300 unt/ml pen injector (2 sources) Insulin Analog TOUJEO SOLOSTAR 300 UNIT/ML SOPN Innject 10 ml once daily. INSULIN GLARGINE [id number] Jyoti Almaguer LPN 3 ml liraglutide 6 mg/ml pen injector (2 sources) GLP-1 Receptor Agonist VICTOZA 18 MG/3ML SOPN Inject 1.8 mg daily. LIRAGLUTIDE [id number] Jyoti Almaguer LPN metoclopramide 10 mg oral tablet (2 sources) Dopamine-2 Receptor Antagonist take 1 tablet by mouth once daily REGLAN 10 MG TABS One tablet by mouth daily METOCLOPRAMIDE HCL [id number] Jyoti Almaguer LPN mometasone furoate 0.05 mg/actuat metered dose nasal spray (2 sources) Corticosteroid take 1 tablet by mouth once daily NASONEX 50 MCG/ACT SUSP One tablet by mouth daily MOMETASONE FUROATE [id number] Jyoti Almaguer LPN montelukast 10 mg oral tablet (2 sources) Leukotriene Receptor Antagonist take 1 tablet by mouth once daily MONTELUKAST SODIUM 10 MG TABS One tablet by mouth daily MONTELUKAST SODIUM [id number] Jyoti Almaguer LPN Problems Active Problems Problem Classification Problem Date Documented Da te Episodic/Chronic Abdominal pain (1 source) Abdominal pain; Translations: [Unspecified abdominal pain] Onset: 02-02-2022 Episodic Diabetes mellitus without complication (12 sources) Type 2 diabetes mellitus; Translations: [Secondary diabetes mellitus] Onset: 05-07-2016 05-07-2016 Chronic Essential hypertension (7 sources) Hypertensive disorder; Translations: [Essential (primary) hypertension] Onset: 05-07-2016 05-07-2016 Chronic Genitourinary symptoms and ill-defined conditions (5 sources) Dysuria 08-15-2017 Episodic Mood disorders (2 sources) Major depressive disorder, recurrent severe without psychotic features; Translations: [Major depressive disorder, recurrent severe without psychotic features] Onset: 05-07-2016 05-07-2016 Chronic Other disorders of stomach and duodenum (2 sources) Functional dyspepsia; Translations: [Functional dyspepsia] Onset: 05-09-2018 Episodic Other nervous system disorders (5 sources) Neuropathy 02-07-2017 Chronic Other nutritional; endocrine; and metabolic disorders (2 sources) Overweight; Translations: [Overweight] Onset: 05-07-2016 05-07-2016 Chronic Other nutritional; endocrine; and metabolic disorders (2 sources) Body mass index (BMI) 40.0-44.9, adult; Translations: [Body mass index (BMI) 40.0-44.9, adult] Onset: 05-07-2016 05-07-2016 Chronic Thyroid disorders (2 sources) Goiter; Translations: [Nontoxic goiter, unspecified] Onset: 05-17-2016 05-17-2016 Chronic Urinary tract infections (1 source) Urinary tract infectious disease; Translations: [Urinary tract infection, site not specified] Onset: 02-06-2021 Episodic Past or Other Problems Problem Classification Problem Date Documented Da te Episodic/Chronic Thyroid disorders (2 sources) Disorder of thyroid gland; Translations: [Disorder of thyroid, unspecified] Onset: 09-17-2016 09-17-2016 Episodic Results Test Name Value Interpretation Reference Range Facil ity Vital Signs Date Time Vital Sign Value Performing Clinician Facility 05-04-2022 14:55-0400 Diastolic Blood Pressure Non-Invasive 68 1 GEETA CLAY MD [facility] 05-04-2022 14:55-0400 Heart rate 74 /min GEETA CLAY MD [facility] 05-04-2022 14:55-0400 Respiratory rate 18 /min GEETA CLAY MD [facility] 05-04-2022 14:55-0400 Systolic Blood Pressure Non-Invasive 144 1 GEETA CLAY MD [facility] 05-04-2022 13:46-0400 Body temperature 97.88 [degF] GEETA CLAY MD [facility] 05-04-2022 13:46-0400 Body weight 120.6 kg GEETA CLAY MD [facility] 05-04-2022 13:46-0400 Diastolic Blood Pressure Non-Invasive 96 1 GEETA CLAY MD [facility] 05-04-2022 13:46-0400 Heart rate 88 /min GEETA CLAY MD [facility] 05-04-2022 13:46-0400 Respiratory rate 16 /min GEETA CLAY MD [facility] 05-04-2022 13:46-0400 Systolic Blood Pressure Non-Invasive 208 1 GEETA CLAY MD [facility] 02-02-2022 18:43-0500 Diastolic Blood Pressure Non-Invasive [address] WADE SOLOMON MD [facility] 02-02-2022 18:43-0500 Heart rate 70 /min DR WADE SOLOMON MD [facility] 02-02-2022 18:43-0500 Respiratory rate 16 /min DR WADE SOLOMON MD [facility] 02-02-2022 18:43-0500 Systolic Blood Pressure Non-Invasive [address] WADE SOLOMON MD [facility] 02-02-2022 16:40-0500 Diastolic Blood Pressure Non-Invasive [address] WADE SOLOMON MD [facility] 02-02-2022 16:40-0500 Heart rate 65 /min DR WADE SOLOMON MD [facility] 02-02-2022 16:40-0500 Respiratory rate 16 /min DR WADE SOLOMON MD [facility] 02-02-2022 16:40-0500 Systolic Blood Pressure Non-Invasive [address] WADE SOLOMON MD [facility] 02-02-2022 13:33-0500 Body temperature 98.24 [degF] DR WADE SOLOMON MD [facility] 02-02-2022 13:33-0500 Diastolic Blood Pressure Non-Invasive [address] WADE SOLOMON MD [facility] 02-02-2022 13:33-0500 Heart rate 69 /min DR WADE SOLOMON MD [facility] 02-02-2022 13:33-0500 Respiratory rate 20 /min DR WADE SOLOMON MD [facility] 02-02-2022 13:33-0500 Systolic Blood Pressure Non-Invasive [address] WADE SOLOMON MD [facility] 08-10-2021 19:39-0400 Body temperature 97.7 [degF] DINH GARCIA MD [facility] 08-10-2021 19:39-0400 Diastolic blood pressure 85 mm[Hg] DINH GARCIA MD [facility] 08-10-2021 19:39-0400 Heart rate 76 /min DINH GARCIA MD [facility] 08-10-2021 19:39-0400 Mean blood pressure 113 mm[Hg] DINH GARCIA MD [facility] 08-10-2021 19:39-0400 Respiratory rate 22 /min DINH GARCIA MD [facility] 08-10-2021 19:39-0400 Systolic blood pressure 168 mm[Hg] DINH GARCIA MD [facility] 06-17-2021 23:25-0400 Diastolic blood pressure 81 mm[Hg] GEETA CLAY MD [facility] 06-17-2021 23:25-0400 Heart rate 86 /min GEETA CLAY MD [facility] 06-17-2021 23:25-0400 Respiratory rate 18 /min GEETA CLAY MD [facility] 06-17-2021 23:25-0400 Systolic blood pressure 153 mm[Hg] GEETA CLAY MD [facility] 06-17-2021 22:57-0400 Body temperature 98.06 [degF] GEETA CLAY MD [facility] 06-17-2021 22:57-0400 Diastolic blood pressure 114 mm[Hg] GEETA CLAY MD [facility] 06-17-2021 22:57-0400 Heart rate 89 /min GEETA CLAY MD [facility] 06-17-2021 22:57-0400 Respiratory rate 22 /min GEETA CLAY MD [facility] 06-17-2021 22:57-0400 Systolic blood pressure 178 mm[Hg] GEETA CLAY MD [facility] 02-06-2021 16:45-0500 Body temperature 98.06 [degF] JEANNINE HAMMONDS MD [facility] 02-06-2021 16:45-0500 Body weight 122 kg JEANNINE HAMMONDS MD [facility] 02-06-2021 16:45-0500 Diastolic blood pressure 80 mm[Hg] JEANNINE HAMMONDS MD [facility] 02-06-2021 16:45-0500 Heart rate 83 /min JEANNINE HAMMONDS MD [facility] 02-06-2021 16:45-0500 Respiratory rate 18 /min JEANNINE HAMMONDS MD [facility] 02-06-2021 16:45-0500 Systolic blood pressure 170 mm[Hg] JEANNINE HAMMONDS MD [facility] 09-17-2016 13:42-0400 BMI (Body Mass Index) 43.28 kg/m2 Alma Rosa [facility] Work Phone: 09-17-2016 13:42-0400 Body Temperature 98 [degF] Al[facility] Work Phone: 09-17-2016 13:42-0400 BP Diastolic 88 mm[Hg] Alma Rosa Pollack LPN [facility] Work Phone: 09-17-2016 13:42-0400 BP Systolic 130 mm[Hg] Alma Rosa Pollack LPN [facility] Work Phone: 09-17-2016 13:42-0400 Height 167.64 cm Alma Rosa Pollack LPN [facility] Work Phone: 09-17-2016 13:42-0400 Pulse (Heart Rate) 70 /min Al[facility] Work Phone: 09-17-2016 13:42-0400 Respiratory Rate 20 /min Alma [facility] Work Phone: 09-17-2016 13:42-0400 Weight 121.66 kg Alma Rosa Pollack LPN [facility] Work Phone: 06-08-2016 13:05-0400 Body Temperature 98.49 [degF] Alma Rosa Pollack [facility]PN [facility] Work Phone: 06-08-2016 13:05-0400 BSA (Body Surface Area) 2.2 m2 Alma Rosa Pollack LPN [facility] Work Phone: 06-08-2016 13:05-0400 Height 167.64 cm Alma Rosa Pollack LPN [facility] Work Phone: 06-08-2016 13:05-0400 Weight 113.03 kg Alma Rosa Ranjeet CUB REPORTER [facility] Work Phone: Encounters Encounter Date Encounter Type Care Provider Facility Start: 05-04-2022 End: 05-04-2022 Emergency department patient visit GEETA CLAY MD Facility:[facility] Start: 05-04-2022 End: 05-04-2022 Emergency department patient visit GEETA CLAY MD [facility] Start: 02-02-2022 End: 02-02-2022 Emergency department patient visit DR WADE SOLOMON MD Facility:[facility] Start: 02-02-2022 End: 02-02-2022 Emergency department patient visit DR WADE SOLOMON MD [facility] Start: 08-10-2021 End: 08-11-2021 Emergency department patient visit DINH GARCIA MD Facility:[facility] Start: 08-10-2021 End: 08-10-2021 Emergency department patient visit DINH GARCIA MD [facility] Start: 06-18-2021 End: 06-18-2021 Emergency department patient visit GEETA CLAY MD Facility:[facility] Start: 06-17-2021 End: 06-17-2021 Emergency department patient visit GEETA CLAY MD [facility] Start: 02-06-2021 End: 02-06-2021 Emergency department patient visit JEANNINE HAMMONDS MD [facility] Start: 05-20-2018 End: 05-20-2018 Emergency department patient visit ERIKA JUANJOSE HERNANDEZ Facility:[facility] Start: 05-09-2018 End: 05-10-2018 [facility] Procedures Date Procedure Procedure Detail Performing Clinician Start: 06-08-2016 End: 06-08-2016 Dietary management education, guidance, and counseling Alma Rosa Pollack CUB REPORTER Cholecystectomy JEANNINE Phipps MD Fallopian tube excision JEANNINE HAMMONDS MD Plan of Treatment Date Care Activity Detail Author Start: 12-01-2016 End: 12-01-2016 Appointment Appointment [facility] Work Phone: Start: 09-17-2016 End: 09-17-2016 *CMP Complete Metabolic Panel *CMP Complete Metabolic Panel [facility] Work Phone: Start: 09-17-2016 End: 09-17-2016 *Microalbumin, Creatine Ratio, rand urine *Microalbumin, Creatine Ratio, rand urine [facility] Work Phone: Start: 09-17-2016 End: 09-17-2016 Hemoglobin A1c/Hemoglobin.total mass fraction (Bld) *HgA1C [facility] Work Phone: Start: 09-17-2016 End: 09-17-2016 T3 free mass conc *T3-Free [facility] Work Phone: Start: 09-17-2016 End: 09-17-2016 T4 free mass conc *T4 free [facility] Work Phone: Start: 09-17-2016 End: 09-17-2016 Thyrotropin Qn *TSH [facility] Work Phone: Start: 06-08-2016 End: 06-08-2016 *CMP Complete Metabolic Panel *CMP Complete Metabolic Panel [facility] Work Phone: Start: 05-07-2016 End: 05-17-2016 *Microalbumin, Creatine Ratio, rand urine *Microalbumin, Creatine Ratio, rand urine [facility] Work Phone: Start: 05-07-2016 End: 05-17-2016 Lipid 1996 panel *Lipid Profile [facility] Work Phone: Start: 05-07-2016 End: 05-17-2016 T3 free mass conc *T3-Free [facility] Work Phone: Start: 05-07-2016 End: 05-17-2016 T4 free mass conc *T4 free [facility] Work Phone: Start: 05-07-2016 End: 05-17-2016 Thyrotropin Qn *TSH [facility] Work Phone: Start: 05-07-2016 End: 05-17-2016 Us soft tissue head & neck real time imge docm US Thyroid (Soft tissue neck) [facility] Work Phone: Patient Education WEIGHT%20MANAG EMENT, HYPERTENSION [facility] Work Phone: Payers Date Payer Category Payer Unknown [id number] 2021 Medicaid [id number] 2018 Unknown 1975 Unknown [id number] 1974 Unknown [id number] [id number] 1974 Unknown [id number] 1974 Unknown [id number] [id number] 1974 Unknown [id number] [id number] [id number] 1974 Unknown [id number] [id number] Social History Date Type Detail Facility Tobacco Nicotine Use: eunice del rosario stated she no longer smokes. she stopped [address] [facility] Smokes tobacco rocio salma (finding) [facility] Sex Assigned At [facility] Medical Equipment Procedure Code Equipment Code Equipment Origin al Text Equipment Identifier Dates FREESTYLE LITE T EST STRIP Start: 10-04-2018 PATIENT TESTS 4 TIMES DAILY Start: 10-04-2018 PATIENT TESTS 4 TIMES DAILY Start: 10-04-2018 PATIENT TESTS 4 TIMES DAILY Start: 10-04-2018 PATIENT TESTS 4 TIMES DAILY Start: 10-04-2018 Functional Status Date Assessment Result Facility 05-04-2022 Functional Status Independent Ashby Alavro sauceda [facility] 05-04-2022 Functional Status Standard Safet y ID band on, Call device within reach, Bed in low position, Wheels locked, Upper/Half-Length side-rails up, Phone within reach, Safety level maintained [facility] 02-02-2022 Functional Status Independent [facility] 02-02-2022 Functional Status Standard Safet y ID band on, Call device within reach, Bed in low position, Wheels locked [facility] 08-10-2021 Functional Status Independent [facility] 08-10-2021 Functional Status Standard Safet y ID band on, Allergy Band on, Call device within reach, Bed in low position, Wheels locked, Upper/Half-Length side-rails up, Phone within reach, Visitor at bedside, Safety level maintained [facility] 06-17-2021 Functional Status [facility] Mental Status Date Assessment Result Facility 05-04-2022 Mental Status Orientation Oriented x 4 [facility] 05-04-2022 Mental Status [facility] 02-02-2022 Mental Status Orientation Oriented x 4 [facility] 02-02-2022 Mental Status [facility] 08-10-2021 Mental Status Orientation Oriented x 4 [facility] 08-10-2021 Mental Status [facility] 06-17-2021 Mental Status [facility] Clinical Notes 04-25-2020 to 05-06-2022 Note Date & Type Note Facility 05-06-2022 Note . MICRO - Microbiology PROCEDURE: Urine Culture [*1] SOURCE: Urine BODY SITE: COLLECTED DATE/TIME: 05/04/2022 14:05 EDT RECEIVED DATE/TIME: 05/04/2022 20:52 EDT START DATE/TIME: 05/04/2022 20:52 EDT FREE TEXT SOURCE: FINAL REPORTS Final Report [] Verified Date/Time/Personnel: 05/06/2022 08:12 EDT >100,000 cfu/ml Escherichia coli PRELIMINARY REPORTS Preliminary Report [] Verified Date/Time/Personnel: 05/05/2022 12:03 EDT >100,000 cfu/ml Escherichia coli TALON to follow SUSCEPTIBILITY RESULTS Escherichia coli Antibiotic TALON Dilut TALON Inter Ampicillin <=8 Susceptible Ampicillin/ <=4/2 Susceptible Sulbactam Aztreonam <=4 Susceptible Cefazolin <=2 Susceptible Ciprofloxacin <=0.25 Susceptible Ertapenem <=0.5 Susceptible Gentamicin <=2 Susceptible Imipenem <=1 Susceptible Levofloxacin <=0.5 Susceptible Meropenem <=1 Susceptible Minocycline <=4 Susceptible Nitrofurantoin <=32 Susceptible Trimethoprim/ <=0.5/9.5 Susceptible Sulfa Performing Locations *1: This test was performed at: [facility], [address] [place] [address], [id number] [place] [address] ([place]) 05-04-2022 Hospital Discharge instructions Patient Education 05/04/2022 14:07:29 Urinary Tract Infections in Women Urinary Tract Infections in Women Urinary tract infections (UTIs) are most often caused by bacteria. These bacteria enter the urinary tract. The bacteria may come from outside the body. Or they may travel from the skin outside the rectum or vagina into the urethra. Female anatomy makes it easy for bacteria from the bowel to enter a woman s urinary tract, which is the most common source of UTI. This means women develop UTIs more often than men. Pain in or around the urinary tract is a common UTI symptom. But the only way to know for sure if you have a UTI for the healthcare provider to test your urine. The two tests that may be done are the urinalysis and urine culture. Types of UTIs Cystitis. A bladder infection (cystitis) is the most common UTI in women. You may have urgent or frequent urination. You may also have pain, burning when you urinate, and bloody urine. Urethritis. This is an inflamed urethra, which is the tube that carries urine from the bladder to outside the body. You may have lower stomach or back pain. You may also have urgent or frequent urination. Pyelonephritis. This is a kidney infection. If not treated, it can be serious and damage your kidneys. In severe cases, you may need to stay in the hospital. You may have a fever and lower back pain. Medicines to treat a UTI Most UTIs are treated with antibiotics. These kill the bacteria. The length of time you need to take them depends on the type of infection. It may be as short as 3 days. If you have repeated UTIs, you may need a low-dose antibiotic for several months. Take antibiotics exactly as directed. Don t stop taking them until all of the medicine is gone. If you stop taking the antibiotic too soon, the infection may not go away. You may also develop a resistance to the antibiotic. This can make it much harder to treat. Lifestyle changes to treat and prevent UTIs The lifestyle changes below will help get rid of your UTI. They may also help prevent future UTIs. Drink plenty of fluids. This includes water, juice, or other caffeine-free drinks. Fluids help flush bacteria out of your body. Empty your bladder. Always empty your bladder when you feel the urge to urinate. And always urinate before going to sleep. Urine that stays in your bladder can lead to infection. Try to urinate before and after sex as well. Practice good personal hygiene. Wipe yourself from front to back after using the toilet. This helps keep bacteria from getting into the urethra. Use condoms during sex. These help prevent UTIs caused by sexually transmitted bacteria. Also don't use spermicides during sex. These can increase the risk for UTIs. Choose other forms of control instead. For women who tend to get UTIs after sex, a low-dose of a preventive antibiotic may be used. Be sure to discuss this option with your healthcare provider. Follow up with your healthcare provider as directed. He or she may test to make sure the infection has cleared. If needed, more treatment may be started. [id number] [employer]. [address] [place] [address], [place] [address]. All rights reserved. This information is not intended as a substitute for professional medical care. Always follow your healthcare professional's instructions. 05/04/2022 14:07:25 Bladder Infection, Female (Adult) Bladder Infection, Female (Adult) Urine is normally doesn't have any bacteria in it. But bacteria can get into the urinary tract from the skin around the rectum. Or they can travel in the blood from elsewhere in the body. Once they are in your urinary tract, they can cause infection in the urethra (urethritis), the bladder (cystitis), or the kidneys (pyelonephritis). The most common place for an infection is in the bladder. This is called a bladder infection. This is one of the most common infections in women. Most bladder infections are easily treated. They are not serious unless the infection spreads to the kidney. The phrases bladder infection, UTI, and cystitis are often used to describe the same thing. But they are not always the same. Cystitis is an inflammation of the bladder. The most common cause of cystitis is an infection. Symptoms The infection causes inflammation in the urethra and bladder. This causes many of the symptoms. The most common symptoms of a bladder infection are: Pain or burning when urinating Having to urinate more often than usual Urgent need to urinate Only a small amount of urine comes out Blood in urine Abdominal discomfort. This is usually in the lower abdomen above the pubic bone. Cloudy urine Strong- or bad-smelling urine Unable to urinate (urinary retention) Unable to hold urine in (urinary incontinence) Fever Loss of appetite Confusion (in older adults) Causes Bladder infections are not contagious. You can't get one from someone else, from a toilet seat, or from sharing a bath. The most common cause of bladder infections is bacteria from the bowels. The bacteria get onto the skin around the opening of the urethra. From there, they can get into the urine and travel up to the bladder, causing inflammation and infection. This usually happens because of: Wiping improperly after urinating. Always wipe from front to back. Bowel incontinence Procedures such as having a catheter inserted Older age Not emptying your bladder. This can allow bacteria a chance to grow in your urine. Dehydration Constipation Sex Use of a diaphragm for control Treatment Bladder infections are diagnosed by a urine test. They are treated with antibiotics and usually clear up quickly without complications. Treatment helps prevent a more serious kidney infection. Medicines Medicines can help in the treatment of a bladder infection: Take antibiotics until they are used up, even if you feel better. It is important to finish them to make sure the infection has cleared. You can use acetaminophen or ibuprofen for pain, fever, or discomfort, unless another medicine was prescribed. If you have chronic liver or kidney disease, talk with your healthcare provider before using these medicines. Also talk with your provider if you've ever had a stomach ulcer or gastrointestinal bleeding, or are taking blood-thinner medicines. If you are given phenazopydridine to reduce burning with urination, it will cause your urine to become a bright orange color. This can stain clothing. Care and prevention These self-care steps can help prevent future infections: Drink plenty of fluids to prevent dehydration and flush out your bladder. Do this unless you must restrict fluids for other health reasons, or your doctor told you not to. Proper cleaning after going to the bathroom is important. Wipe from front to back after using the toilet to prevent the spread of bacteria. Urinate more often. Don't try to hold urine in for a long time. Wear loose-fitting clothes and cotton underwear. Avoid tight-fitting pants. Improve your diet and prevent constipation. Eat more fresh fruit and vegetables, and fiber, and less junk and fatty foods. Avoid sex until your symptoms are gone. Avoid caffeine, alcohol, and spicy foods. These can irritate your bladder. Urinate right after intercourse to flush out your bladder. If you use control pills and have frequent bladder infections, discuss it with your doctor. Follow-up care Call your healthcare provider if all symptoms are not gone after 3 days of treatment. This is especially important if you have repeat infections. If a culture was done, you will be told if your treatment needs to be changed. If directed, you can call to find out the results. If X-rays were done, you will be told if the results will affect your treatment. Call 911 Call 911 if any of the following occur: Trouble breathing Hard to wake up or confusion Fainting or loss of consciousness Rapid heart rate When to seek medical advice Call your healthcare provider right away if any of these occur: Fever of 100.4 F (38.0 C) or higher, or as directed by your healthcare provider Symptoms are not better by the third day of treatment Back or belly (abdominal) pain that gets worse Repeated vomiting, or unable to keep medicine down Weakness or dizziness Vaginal discharge Pain, redness, or swelling in the outer vaginal area (labia) 0070-2529 [employer]. [address] [place] [address], [place] [address]. All rights reserved. This information is not intended as a substitute for professional medical care. Always follow your healthcare professional's instructions. Follow Up Care 05/04/2022 13:36:06 With:DUSTY HEAD Address: [address] [facility] [place] [address] [phone] When:2-4 days [facility] 05-04-2022 Note Discharge Instructions Thank you for allowing [facility] to assist you with your healthcare needs. The following is important discharge information regarding your hospital visit. Diagnosis from Today's Visit Urination painful What to Do Next Instructions from Your Care Team No qualifying data available. Post Acute Orders No qualifying data available. You Need to Schedule the Following Appointments Follow Up with DUSTY HEAD When Within 2-4 days Where: [address] [facility] [place] [address] [phone] Allergies aspirin Medications Please ask your primary doctor or pharmacist before taking any other medication not listed, including over the counter drugs, herbal medications, vitamins and or supplements as they may interact with your home medications. What How Much When Why Instructions Last Dose Changed cephalexin (cephalexin 500 mg oral capsule) 1 cap by mouth Every 12 hours Duration: 5 Days Printed Prescription Changed cephalexin (cephalexin 500 mg oral capsule) 1 cap by mouth Three (3) times a day UTI - Urinary tract infection Duration: 5 Days Unchanged albuterol (albuterol MDI (90 mcg/ inh) CFC free inhalation aerosol) INHALE 2 PUFFS EVERY 4 HOURS NEEDED FOR COUGH OR SHORT BREATHS Unchanged amitriptyline (amitriptyline 25 mg oral tablet) TAKE 1 TABLET BY MOUTH TWICE A DAY Unchanged azithromycin (Zithromax Z-Hi 250 mg oral tablet) 1 dose by mouth Every day Bronchitis Duration: 5 Days Unchanged benzonatate (Tessalon Perles 100 mg oral capsule) 1 cap by mouth Three (3) times a day as needed for as needed for cough Bronchitis Duration: 7 Days Unchanged carvedilol (Coreg 12.5 mg oral tablet) 1 tab(s) by mouth Twice daily with meals Unchanged cetirizine (Zyrtec 10 mg oral tablet) 1 tab(s) by mouth Daily at bedtime Unchanged cholecalciferol (Vitamin D3 50,000 intl units oral capsule) 1 cap by mouth Every week Unchanged citalopram (citalopram 40 mg oral tablet) TAKE 1 TABLET BY MOUTH EVERY DAY Unchanged DME (DME MISCellaneous) See instructions yudy sensor 14 day Unchanged DME (DME MISCellaneous) See instructions Diabetes mellitus type 2 Yudy reader.. Unchanged DME (DME MISCellaneous) See instructions Diabetes mellitus type 2 Gastroparesis due to secondary diabetes yudy sensor 14 day # 6 Use as directed. Unchanged DME (DME MISCellaneous) See instructions Freestyle Yudy Medanales Unchanged DME (DME MISCellaneous) See instructions Freestyle Yudy Sensors Unchanged gabapentin (gabapentin 300 mg oral capsule) 1 cap by mouth Daily at bedtime Unchanged hydroCHLOROthiazide-losartan (hydrochlorothiazide-losartan 25-100 mg oral tablet) 1 tab(s) by mouth Every day Unchanged insulin aspart (Novolog) (NovoLOG FlexPen 100 units/ mL injectable solution) 15 unit(s) Subcutaneous Three (3) times a day before meals Unchanged insulin isophane (NPH) (NovoLIN N 100 units/ mL 10 mL vial) See Instructions Subcutaneous patient takes 37 units at breakfast and 37 units at bedtime Unchanged metFORMIN (metFORMIN 1000 mg oral tablet) 1 tab(s) by mouth Once a day TAKE 1 TABLET BY MOUTH TWICE A DAY Unchanged Misc Medication ([employer] ALCOHOL 70% PREP PADS) FOR USE WITH TESTING BLOOD SUGARS DIRECTED TESTS 4 TIMES DAILY Unchanged Misc Medication (FREESTYLE LITE TEST STRIP) PATIENT TESTS 4 TIMES DAILY Unchanged ondansetron (Zofran ODT) by mouth Three (3) times a day Unchanged potassium chloride (Klor-Con 10) 10 Milliequivalent by mouth Once a day Please take this list to your next doctor s visit. Bring all medications you take, including over the counter medications, herbals and other supplements with you to your doctor s visit. Patients and families are reminded to discard old lists and to update any records with all medication providers or retail pharmacies. Medication Leaflets cephalexin (sef a AMAN in) Keflex What is the most important information I should know about cephalexin? You should not use this medicine if you are allergic to cephalexin or to similar antibiotics, such as Ceftin, Cefzil, Omnicef, and others. Tell your doctor if you are allergic to any drugs, especially penicillins or other antibiotics. What is cephalexin? Cephalexin is a cephalosporin (SEF a low spor in) antibiotic that is used to treat bacterial infections of the lungs, ear, skin, bones, bladder, and kidneys. Cephalexin is used to treat infections in adults and children who are at least 1 year old. Cephalexin may also be used for purposes not listed in this medication guide. What should I discuss with my healthcare provider before taking cephalexin? You should not use this medicine if you are allergic to cephalexin or any other cephalosporin antibiotic (cefdinir, cefadroxil, cefoxitin, cefprozil, ceftriaxone, cefuroxime, Omnicef, and others). Tell your doctor if you have ever had: an allergy to any drug (especially penicillin); liver or kidney disease; or intestinal problems, such as colitis. The liquid form of cephalexin may contain sugar. This may affect you if you have diabetes. Tell your doctor if you are or breast-feeding. How should I take cephalexin? Follow all directions on your prescription label and read all medication guides or instruction sheets. Use the medicine exactly as directed. Do not use cephalexin to treat any condition that has not been checked by your doctor. Measure liquid medicine carefully. Use the dosing syringe provided, or use a medicine dose-measuring device (not a kitchen spoon). Use this medicine for the full prescribed length of time, even if your symptoms quickly improve. Skipping doses can increase your risk of infection that is resistant to medication. Cephalexin will not treat a viral infection such as the flu or a common cold. Do not share cephalexin with another person, even if they have the same symptoms you have. This medicine can affect the results of certain medical tests. Tell any doctor who treats you that you are using cephalexin. Store the tablets and capsules at room temperature away from moisture, heat, and light. Store the liquid medicine in the refrigerator. Throw away any unused liquid after 14 days. What happens if I miss a dose? Take the medicine as soon as you can, but skip the missed dose if it is almost time for your next dose. Do not take two doses at one time. What happens if I overdose? Seek emergency medical attention or call the Poison Help line at . Overdose symptoms may include nausea, vomiting, stomach pain, diarrhea, and blood in your urine. What should I avoid while taking cephalexin? Antibiotic medicines can cause diarrhea, which may be a sign of a new infection. If you have diarrhea that is watery or bloody, call your doctor before using anti-diarrhea medicine. What are the possible side effects of cephalexin? Get emergency medical help if you have signs of an allergic reaction (hives, difficult breathing, swelling in your face or throat) or a severe skin reaction (fever, sore throat, burning eyes, skin pain, red or purple skin rash with blistering and peeling). Call your doctor at once if you have: severe stomach pain, diarrhea that is watery or bloody (even if it occurs months after your last dose); unusual tiredness, feeling light-headed or short of breath; easy bruising, unusual bleeding, purple or red spots under your skin; a seizure; pale skin, cold hands and feet; yellowed skin, dark colored urine; fever, weakness; or pain in your side or lower back, painful urination. Common side effects may include: diarrhea; nausea, vomiting; indigestion, stomach pain; or vaginal itching or discharge. This is not a complete list of side effects and others may occur. Call your doctor for medical advice about side effects. You may report side effects to FDA at 7-870-FMY-6311. What other drugs will affect cephalexin? Tell your doctor about all your other medicines, especially: metformin; or probenecid. This list is not complete. Other drugs may affect cephalexin, including prescription and noyd-gcg-gymbhle medicines, vitamins, and herbal products. Not all possible drug interactions are listed here. Where can I get more information? Your pharmacist can provide more information about cephalexin. Remember, keep this and all other medicines out of the reach of children, never share your medicines with others, and use this medication only for the indication prescribed. Every effort has been made to ensure that the information provided by [employer]. ('[employer]') is accurate, up-to-date, and complete, but no guarantee is made to that effect. Drug information contained herein may be time sensitive. [employer] information has been compiled for use by healthcare practitioners and consumers in the [place] and therefore [employer] does not warrant that uses outside of the [place] are appropriate, unless specifically indicated otherwise. [employer] drug information does not endorse drugs, diagnose patients or recommend therapy. [employer] drug information is an informational resource designed to assist licensed healthcare practitioners in caring for their patients and/or to serve consumers viewing this service as a supplement to, and not a substitute for, the expertise, skill, knowledge and judgment of healthcare practitioners. The absence of a warning for a given drug or drug combination in no way should be construed to indicate that the drug or drug combination is safe, effective or appropriate for any given patient. [facility] does not assume any responsibility for any aspect of healthcare administered with the aid of information [facility] provides. The information contained herein is not intended to cover all possible uses, directions, precautions, warnings, drug interactions, allergic reactions, or adverse effects. If you have questions about the drugs you are taking, check with your doctor, nurse or pharmacist. Copyright 9772-3162 [facility]. Version: 10.. Revision Date: 02/19/2020. Education Materials Urinary Tract Infections in Women Urinary tract infections (UTIs) are most often caused by bacteria. These bacteria enter the urinary tract. The bacteria may come from outside the body. Or they may travel from the skin outside the rectum or vagina into the urethra. Female anatomy makes it easy for bacteria from the bowel to enter a woman s urinary tract, which is the most common source of UTI. This means women develop UTIs more often than men. Pain in or around the urinary tract is a common UTI symptom. But the only way to know for sure if you have a UTI for the healthcare provider to test your urine. The two tests that may be done are the urinalysis and urine culture. Types of UTIs Cystitis. A bladder infection (cystitis) is the most common UTI in women. You may have urgent or frequent urination. You may also have pain, burning when you urinate, and bloody urine. Urethritis. This is an inflamed urethra, which is the tube that carries urine from the bladder to outside the body. You may have lower stomach or back pain. You may also have urgent or frequent urination. Pyelonephritis. This is a kidney infection. If not treated, it can be serious and damage your kidneys. In severe cases, you may need to stay in the hospital. You may have a fever and lower back pain. Medicines to treat a UTI Most UTIs are treated with antibiotics. These kill the bacteria. The length of time you need to take them depends on the type of infection. It may be as short as 3 days. If you have repeated UTIs, you may need a low-dose antibiotic for several months. Take antibiotics exactly as directed. Don t stop taking them until all of the medicine is gone. If you stop taking the antibiotic too soon, the infection may not go away. You may also develop a resistance to the antibiotic. This can make it much harder to treat. Lifestyle changes to treat and prevent UTIs The lifestyle changes below will help get rid of your UTI. They may also help prevent future UTIs. Drink plenty of fluids. This includes water, juice, or other caffeine-free drinks. Fluids help flush bacteria out of your body. Empty your bladder. Always empty your bladder when you feel the urge to urinate. And always urinate before going to sleep. Urine that stays in your bladder can lead to infection. Try to urinate before and after sex as well. Practice good personal hygiene. Wipe yourself from front to back after using the toilet. This helps keep bacteria from getting into the urethra. Use condoms during sex. These help prevent UTIs caused by sexually transmitted bacteria. Also don't use spermicides during sex. These can increase the risk for UTIs. Choose other forms of control instead. For women who tend to get UTIs after sex, a low-dose of a preventive antibiotic may be used. Be sure to discuss this option with your healthcare provider. Follow up with your healthcare provider as directed. He or she may test to make sure the infection has cleared. If needed, more treatment may be started. 6510-7759 [employer]. [address] [place] [address]. All rights reserved. This information is not intended as a substitute for professional medical care. Always follow your healthcare professional's instructions. Bladder Infection, Female (Adult) Urine is normally doesn't have any bacteria in it. But bacteria can get into the urinary tract from the skin around the rectum. Or they can travel in the blood from elsewhere in the body. Once they are in your urinary tract, they can cause infection in the urethra (urethritis), the bladder (cystitis), or the kidneys (pyelonephritis). The most common place for an infection is in the bladder. This is called a bladder infection. This is one of the most common infections in women. Most bladder infections are easily treated. They are not serious unless the infection spreads to the kidney. The phrases bladder infection, UTI, and cystitis are often used to describe the same thing. But they are not always the same. Cystitis is an inflammation of the bladder. The most common cause of cystitis is an infection. Symptoms The infection causes inflammation in the urethra and bladder. This causes many of the symptoms. The most common symptoms of a bladder infection are: Pain or burning when urinating Having to urinate more often than usual Urgent need to urinate Only a small amount of urine comes out Blood in urine Abdominal discomfort. This is usually in the lower abdomen above the pubic bone. Cloudy urine Strong- or bad-smelling urine Unable to urinate (urinary retention) Unable to hold urine in (urinary incontinence) Fever Loss of appetite Confusion (in older adults) Causes Bladder infections are not contagious. You can't get one from someone else, from a toilet seat, or from sharing a bath. The most common cause of bladder infections is bacteria from the bowels. The bacteria get onto the skin around the opening of the urethra. From there, they can get into the urine and travel up to the bladder, causing inflammation and infection. This usually happens because of: Wiping improperly after urinating. Always wipe from front to back. Bowel incontinence Procedures such as having a catheter inserted Older age Not emptying your bladder. This can allow bacteria a chance to grow in your urine. Dehydration Constipation Sex Use of a diaphragm for control Treatment Bladder infections are diagnosed by a urine test. They are treated with antibiotics and usually clear up quickly without complications. Treatment helps prevent a more serious kidney infection. Medicines Medicines can help in the treatment of a bladder infection: Take antibiotics until they are used up, even if you feel better. It is important to finish them to make sure the infection has cleared. You can use acetaminophen or ibuprofen for pain, fever, or discomfort, unless another medicine was prescribed. If you have chronic liver or kidney disease, talk with your healthcare provider before using these medicines. Also talk with your provider if you've ever had a stomach ulcer or gastrointestinal bleeding, or are taking blood-thinner medicines. If you are given phenazopydridine to reduce burning with urination, it will cause your urine to become a bright orange color. This can stain clothing. Care and prevention These self-care steps can help prevent future infections: Drink plenty of fluids to prevent dehydration and flush out your bladder. Do this unless you must restrict fluids for other health reasons, or your doctor told you not to. Proper cleaning after going to the bathroom is important. Wipe from front to back after using the toilet to prevent the spread of bacteria. Urinate more often. Don't try to hold urine in for a long time. Wear loose-fitting clothes and cotton underwear. Avoid tight-fitting pants. Improve your diet and prevent constipation. Eat more fresh fruit and vegetables, and fiber, and less junk and fatty foods. Avoid sex until your symptoms are gone. Avoid caffeine, alcohol, and spicy foods. These can irritate your bladder. Urinate right after intercourse to flush out your bladder. If you use control pills and have frequent bladder infections, discuss it with your doctor. Follow-up care Call your healthcare provider if all symptoms are not gone after 3 days of treatment. This is especially important if you have repeat infections. If a culture was done, you will be told if your treatment needs to be changed. If directed, you can call to find out the results. If X-rays were done, you will be told if the results will affect your treatment. Call 911 Call 911 if any of the following occur: Trouble breathing Hard to wake up or confusion Fainting or loss of consciousness Rapid heart rate When to seek medical advice Call your healthcare provider right away if any of these occur: Fever of 100.4 F (38.0 C) or higher, or as directed by your healthcare provider Symptoms are not better by the third day of treatment Back or belly (abdominal) pain that gets worse Repeated vomiting, or unable to keep medicine down Weakness or dizziness Vaginal discharge Pain, redness, or swelling in the outer vaginal area (labia) [id number] [employer]. [address] [place] [address], [place] [address]. All rights reserved. This information is not intended as a substitute for professional medical care. Always follow your healthcare professional's instructions. Additional Information VACCINATE! IT SAVES LIVES! Members of the community who have not yet received the COVID-19 vaccine and would like to receive it can visit one of [facility] vaccine clinics. There are many vaccine clinic locations within the [facility]. For locations and available times, please visit [email or web address] It is important to note that some COVID mobile vaccine clinics are held outdoors and may be canceled in rainy or stormy conditions. To learn more about pediatric vaccinations (ages 5-11), we invite you to visit the [facility] webpage. [email or web address] To learn more about the COVID-19 vaccine, we invite you to visit the CDC website for a list of frequently asked questions. https://www.cdc.gov/coronavirus/ 2019-ncov/vaccines/faq.html [facility] Patient Portal Access Instructions: Stay connected with your healthcare team and access your personal medical information anytime with the [facility] Patient Portal. If you would like a full copy of your medical records please contact the [facility] Medical Records Department Wednesday through Wednesday between 8a.m. and 4:30p.m. Please follow the directions below to access the portal: 1.Access the email account you provided upon registration to the [facility].2.Look for an invitation email from [facility].3.Open the email and access the invitation link: Accept Invitation to [facility].Fill in the required abdalla to create your account. Sign into www.[employer] with your username and password that you created in the above steps to stay up to date. You can then view a summary of results, a summary of your visits, and the ability to download your summaries to your computer or send the information securely to a physician. Remember that your healthcare information is confidential, so carefully consider who you will allow to register on the [facility] Patient Portal for access to your information. You can also access the [employer] Patient Portal on the [facility]. Simply click on Health Records under Health Data and then click on the [employer] logo. HOW TO SAFELY DISPOSE OF PRESCRIPTION MEDICATIONS Please use one of the following methods to safely dispose of your unused medications. 1.Use a drug disposal kit: the drug disposal pouch allows you to safely discard your old and unused drugs. Ask your nurse to give you one when you are discharged.2.Visit a local take-back location: Many local pharmacies and police departments have programs that collect old and unwanted prescription drugs. Call your local pharmacy or go to [email or web address] to find one close to you.3.Make use of household items: Use cat litter or old coffee grounds to dispose medications if other options are not available. Mix your drugs with these household products, seal them in an airtight container and throw it into the garbage. Call [facility]: [phone] to be sure your drugs can be disposed of in this way. Some medicines may require a different approach.4.Never flush your medications down the toilet. IF YOU HAVE BEEN PRESCRIBED AN OPIOIDS FOR PAIN If you have been prescribed an opioid (such as hydrocodone, oxycodone or morphine), it is critical to understand the possible side effects and risks of opioid pain medications. Even when taken as directed, opioids can have several side effects including: Tolerance, meaning you might need to take more of a medication for the same pain relief. Nausea, vomiting and/or constipation. Sleepiness, dizziness, dry mouth, confusion, depression or itching. Physical dependence, meaning you have withdrawal symptoms when a medication is stopped ? this can develop within a few days. KNOW YOUR RESPONSIBILITIES It is important to know exactly how much and how often to take the opioid pain medications you are prescribed. Never take opioids in higher amounts or more often than prescribed. Do not combine opioids with alcohol or other drugs that cause drowsiness, such as benzodiazepines, also known as benzos, including diazepam and alprazolam, muscle relaxants or sleep aids. Never sell or share prescription opioids. This is illegal. Store opioids in a secure place and out of reach of others (including children, family, friends and visitors). The last page(s) of this document has been signed and retained as a CHART COPY Signatures Patient Education Materials Urinary Tract Infections in Women Bladder Infection, Female (Adult) Medication Leaflets cephalexin My discharge plan and instructions have been reviewed and explained to me and IRAHEEM JENNIFER D understand my current condition and have read and understand these discharge instructions. I have received a written copy of the plan/instructions. If I have questions, I am aware that I should contact my doctor. Patient/Hospital Attendant Signature: Date/Time: Relationship to Patient: Witness Name/Signature: Date/Time: [facility] 05-04-2022 Note Discharge Instructions Thank you for allowing [facility] to assist you with your healthcare needs. The following is important discharge information regarding your hospital visit. Diagnosis from Today's Visit Urination painful What to Do Next Instructions from Your Care Team No qualifying data available. Post Acute Orders No qualifying data available. You Need to Schedule the Following Appointments Follow Up with DUSTY [facility] When Within 2-4 days Where: [address] [place] [address]- [phone] Allergies aspirin Medications Please ask your primary doctor or pharmacist before taking any other medication not listed, including over the counter drugs, herbal medications, vitamins and or supplements as they may interact with your home medications. What How Much When Why Instructions Last Dose Changed cephalexin (cephalexin 500 mg oral capsule) 1 cap by mouth Every 12 hours Duration: 5 Days Printed Prescription Changed cephalexin (cephalexin 500 mg oral capsule) 1 cap by mouth Three (3) times a day UTI - Urinary tract infection Duration: 5 Days Unchanged albuterol (albuterol MDI (90 mcg/ inh) CFC free inhalation aerosol) INHALE 2 PUFFS EVERY 4 HOURS NEEDED FOR COUGH OR SHORT BREATHS Unchanged amitriptyline (amitriptyline 25 mg oral tablet) TAKE 1 TABLET BY MOUTH TWICE A DAY Unchanged azithromycin (Zithromax Z-Hi 250 mg oral tablet) 1 dose by mouth Every day Bronchitis Duration: 5 Days Unchanged benzonatate (Tessalon Perles 100 mg oral capsule) 1 cap by mouth Three (3) times a day as needed for as needed for cough Bronchitis Duration: 7 Days Unchanged carvedilol (Coreg 12.5 mg oral tablet) 1 tab(s) by mouth Twice daily with meals Unchanged cetirizine (Zyrtec 10 mg oral tablet) 1 tab(s) by mouth Daily at bedtime Unchanged cholecalciferol (Vitamin D3 50,000 intl units oral capsule) 1 cap by mouth Every week Unchanged citalopram (citalopram 40 mg oral tablet) TAKE 1 TABLET BY MOUTH EVERY DAY Unchanged DME (DME MISCellaneous) See instructions yudy sensor 14 day Unchanged DME (DME MISCellaneous) See instructions Diabetes mellitus type 2 Yudy reader.. Unchanged DME (DME MISCellaneous) See instructions Diabetes mellitus type 2 Gastroparesis due to secondary diabetes yudy sensor 14 day # 6 Use as directed. Unchanged DME (DME MISCellaneous) See instructions Freestyle Yudy Medanales Unchanged DME (DME MISCellaneous) See instructions Freestyle Yudy Sensors Unchanged gabapentin (gabapentin 300 mg oral capsule) 1 cap by mouth Daily at bedtime Unchanged hydroCHLOROthiazide-losartan (hydrochlorothiazide-losartan 25-100 mg oral tablet) 1 tab(s) by mouth Every day Unchanged insulin aspart (Novolog) (NovoLOG FlexPen 100 units/ mL injectable solution) 15 unit(s) Subcutaneous Three (3) times a day before meals Unchanged insulin isophane (NPH) (NovoLIN N 100 units/ mL 10 mL vial) See Instructions Subcutaneous patient takes 37 units at breakfast and 37 units at bedtime Unchanged metFORMIN (metFORMIN 1000 mg oral tablet) 1 tab(s) by mouth Once a day TAKE 1 TABLET BY MOUTH TWICE A DAY Unchanged Misc Medication ([employer] ALCOHOL 70% PREP PADS) FOR USE WITH TESTING BLOOD SUGARS DIRECTED TESTS 4 TIMES DAILY Unchanged Misc Medication (FREESTYLE LITE TEST STRIP) PATIENT TESTS 4 TIMES DAILY Unchanged ondansetron (Zofran ODT) by mouth Three (3) times a day Unchanged potassium chloride (Klor-Con 10) 10 Milliequivalent by mouth Once a day Please take this list to your next doctor s visit. Bring all medications you take, including over the counter medications, herbals and other supplements with you to your doctor s visit. Patients and families are reminded to discard old lists and to update any records with all medication providers or retail pharmacies. Medication Leaflets cephalexin (sef a AMAN in) Keflex What is the most important information I should know about cephalexin? You should not use this medicine if you are allergic to cephalexin or to similar antibiotics, such as Ceftin, Cefzil, Omnicef, and others. Tell your doctor if you are allergic to any drugs, especially penicillins or other antibiotics. What is cephalexin? Cephalexin is a cephalosporin (SEF a low spor in) antibiotic that is used to treat bacterial infections of the lungs, ear, skin, bones, bladder, and kidneys. Cephalexin is used to treat infections in adults and children who are at least 1 year old. Cephalexin may also be used for purposes not listed in this medication guide. What should I discuss with my healthcare provider before taking cephalexin? You should not use this medicine if you are allergic to cephalexin or any other cephalosporin antibiotic (cefdinir, cefadroxil, cefoxitin, cefprozil, ceftriaxone, cefuroxime, Omnicef, and others). Tell your doctor if you have ever had: an allergy to any drug (especially penicillin); liver or kidney disease; or intestinal problems, such as colitis. The liquid form of cephalexin may contain sugar. This may affect you if you have diabetes. Tell your doctor if you are or breast-feeding. How should I take cephalexin? Follow all directions on your prescription label and read all medication guides or instruction sheets. Use the medicine exactly as directed. Do not use cephalexin to treat any condition that has not been checked by your doctor. Measure liquid medicine carefully. Use the dosing syringe provided, or use a medicine dose-measuring device (not a kitchen spoon). Use this medicine for the full prescribed length of time, even if your symptoms quickly improve. Skipping doses can increase your risk of infection that is resistant to medication. Cephalexin will not treat a viral infection such as the flu or a common cold. Do not share cephalexin with another person, even if they have the same symptoms you have. This medicine can affect the results of certain medical tests. Tell any doctor who treats you that you are using cephalexin. Store the tablets and capsules at room temperature away from moisture, heat, and light. Store the liquid medicine in the refrigerator. Throw away any unused liquid after 14 days. What happens if I miss a dose? Take the medicine as soon as you can, but skip the missed dose if it is almost time for your next dose. Do not take two doses at one time. What happens if I overdose? Seek emergency medical attention or call the Poison Help line at . Overdose symptoms may include nausea, vomiting, stomach pain, diarrhea, and blood in your urine. What should I avoid while taking cephalexin? Antibiotic medicines can cause diarrhea, which may be a sign of a new infection. If you have diarrhea that is watery or bloody, call your doctor before using anti-diarrhea medicine. What are the possible side effects of cephalexin? Get emergency medical help if you have signs of an allergic reaction (hives, difficult breathing, swelling in your face or throat) or a severe skin reaction (fever, sore throat, burning eyes, skin pain, red or purple skin rash with blistering and peeling). Call your doctor at once if you have: severe stomach pain, diarrhea that is watery or bloody (even if it occurs months after your last dose); unusual tiredness, feeling light-headed or short of breath; easy bruising, unusual bleeding, purple or red spots under your skin; a seizure; pale skin, cold hands and feet; yellowed skin, dark colored urine; fever, weakness; or pain in your side or lower back, painful urination. Common side effects may include: diarrhea; nausea, vomiting; indigestion, stomach pain; or vaginal itching or discharge. This is not a complete list of side effects and others may occur. Call your doctor for medical advice about side effects. You may report side effects to FDA at 1-117-ADD-6498. What other drugs will affect cephalexin? Tell your doctor about all your other medicines, especially: metformin; or probenecid. This list is not complete. Other drugs may affect cephalexin, including prescription and [id number] medicines, vitamins, and herbal products. Not all possible drug interactions are listed here. Where can I get more information? Your pharmacist can provide more information about cephalexin. Remember, keep this and all other medicines out of the reach of children, never share your medicines with others, and use this medication only for the indication prescribed. Every effort has been made to ensure that the information provided by [employer]. ('[employer]') is accurate, up-to-date, and complete, but no guarantee is made to that effect. Drug information contained herein may be time sensitive. [employer] information has been compiled for use by healthcare practitioners and consumers in the [place] and therefore [employer] does not warrant that uses outside of the [place] are appropriate, unless specifically indicated otherwise. [employer]'s drug information does not endorse drugs, diagnose patients or recommend therapy. [facility]'s drug information is an informational resource designed to assist licensed healthcare practitioners in caring for their patients and/or to serve consumers viewing this service as a supplement to, and not a substitute for, the expertise, skill, knowledge and judgment of healthcare practitioners. The absence of a warning for a given drug or drug combination in no way should be construed to indicate that the drug or drug combination is safe, effective or appropriate for any given patient. [facility] does not assume any responsibility for any aspect of healthcare administered with the aid of information [facility] provides. The information contained herein is not intended to cover all possible uses, directions, precautions, warnings, drug interactions, allergic reactions, or adverse effects. If you have questions about the drugs you are taking, check with your doctor, nurse or pharmacist. Copyright 3532-0476 [employer]. Version: 10.. Revision Date: 02/19/2020. Education Materials Urinary Tract Infections in Women Urinary tract infections (UTIs) are most often caused by bacteria. These bacteria enter the urinary tract. The bacteria may come from outside the body. Or they may travel from the skin outside the rectum or vagina into the urethra. Female anatomy makes it easy for bacteria from the bowel to enter a woman s urinary tract, which is the most common source of UTI. This means women develop UTIs more often than men. Pain in or around the urinary tract is a common UTI symptom. But the only way to know for sure if you have a UTI for the healthcare provider to test your urine. The two tests that may be done are the urinalysis and urine culture. Types of UTIs Cystitis. A bladder infection (cystitis) is the most common UTI in women. You may have urgent or frequent urination. You may also have pain, burning when you urinate, and bloody urine. Urethritis. This is an inflamed urethra, which is the tube that carries urine from the bladder to outside the body. You may have lower stomach or back pain. You may also have urgent or frequent urination. Pyelonephritis. This is a kidney infection. If not treated, it can be serious and damage your kidneys. In severe cases, you may need to stay in the hospital. You may have a fever and lower back pain. Medicines to treat a UTI Most UTIs are treated with antibiotics. These kill the bacteria. The length of time you need to take them depends on the type of infection. It may be as short as 3 days. If you have repeated UTIs, you may need a low-dose antibiotic for several months. Take antibiotics exactly as directed. Don t stop taking them until all of the medicine is gone. If you stop taking the antibiotic too soon, the infection may not go away. You may also develop a resistance to the antibiotic. This can make it much harder to treat. Lifestyle changes to treat and prevent UTIs The lifestyle changes below will help get rid of your UTI. They may also help prevent future UTIs. Drink plenty of fluids. This includes water, juice, or other caffeine-free drinks. Fluids help flush bacteria out of your body. Empty your bladder. Always empty your bladder when you feel the urge to urinate. And always urinate before going to sleep. Urine that stays in your bladder can lead to infection. Try to urinate before and after sex as well. Practice good personal hygiene. Wipe yourself from front to back after using the toilet. This helps keep bacteria from getting into the urethra. Use condoms during sex. These help prevent UTIs caused by sexually transmitted bacteria. Also don't use spermicides during sex. These can increase the risk for UTIs. Choose other forms of control instead. For women who tend to get UTIs after sex, a low-dose of a preventive antibiotic may be used. Be sure to discuss this option with your healthcare provider. Follow up with your healthcare provider as directed. He or she may test to make sure the infection has cleared. If needed, more treatment may be started. 0143-1420 [employer]. [address] [place] [address]. All rights reserved. This information is not intended as a substitute for professional medical care. Always follow your healthcare professional's instructions. Bladder Infection, Female (Adult) Urine is normally doesn't have any bacteria in it. But bacteria can get into the urinary tract from the skin around the rectum. Or they can travel in the blood from elsewhere in the body. Once they are in your urinary tract, they can cause infection in the urethra (urethritis), the bladder (cystitis), or the kidneys (pyelonephritis). The most common place for an infection is in the bladder. This is called a bladder infection. This is one of the most common infections in women. Most bladder infections are easily treated. They are not serious unless the infection spreads to the kidney. The phrases bladder infection, UTI, and cystitis are often used to describe the same thing. But they are not always the same. Cystitis is an inflammation of the bladder. The most common cause of cystitis is an infection. Symptoms The infection causes inflammation in the urethra and bladder. This causes many of the symptoms. The most common symptoms of a bladder infection are: Pain or burning when urinating Having to urinate more often than usual Urgent need to urinate Only a small amount of urine comes out Blood in urine Abdominal discomfort. This is usually in the lower abdomen above the pubic bone. Cloudy urine Strong- or bad-smelling urine Unable to urinate (urinary retention) Unable to hold urine in (urinary incontinence) Fever Loss of appetite Confusion (in older adults) Causes Bladder infections are not contagious. You can't get one from someone else, from a toilet seat, or from sharing a bath. The most common cause of bladder infections is bacteria from the bowels. The bacteria get onto the skin around the opening of the urethra. From there, they can get into the urine and travel up to the bladder, causing inflammation and infection. This usually happens because of: Wiping improperly after urinating. Always wipe from front to back. Bowel incontinence Procedures such as having a catheter inserted Older age Not emptying your bladder. This can allow bacteria a chance to grow in your urine. Dehydration Constipation Sex Use of a diaphragm for control Treatment Bladder infections are diagnosed by a urine test. They are treated with antibiotics and usually clear up quickly without complications. Treatment helps prevent a more serious kidney infection. Medicines Medicines can help in the treatment of a bladder infection: Take antibiotics until they are used up, even if you feel better. It is important to finish them to make sure the infection has cleared. You can use acetaminophen or ibuprofen for pain, fever, or discomfort, unless another medicine was prescribed. If you have chronic liver or kidney disease, talk with your healthcare provider before using these medicines. Also talk with your provider if you've ever had a stomach ulcer or gastrointestinal bleeding, or are taking blood-thinner medicines. If you are given phenazopydridine to reduce burning with urination, it will cause your urine to become a bright orange color. This can stain clothing. Care and prevention These self-care steps can help prevent future infections: Drink plenty of fluids to prevent dehydration and flush out your bladder. Do this unless you must restrict fluids for other health reasons, or your doctor told you not to. Proper cleaning after going to the bathroom is important. Wipe from front to back after using the toilet to prevent the spread of bacteria. Urinate more often. Don't try to hold urine in for a long time. Wear loose-fitting clothes and cotton underwear. Avoid tight-fitting pants. Improve your diet and prevent constipation. Eat more fresh fruit and vegetables, and fiber, and less junk and fatty foods. Avoid sex until your symptoms are gone. Avoid caffeine, alcohol, and spicy foods. These can irritate your bladder. Urinate right after intercourse to flush out your bladder. If you use control pills and have frequent bladder infections, discuss it with your doctor. Follow-up care Call your healthcare provider if all symptoms are not gone after 3 days of treatment. This is especially important if you have repeat infections. If a culture was done, you will be told if your treatment needs to be changed. If directed, you can call to find out the results. If X-rays were done, you will be told if the results will affect your treatment. Call 911 Call 911 if any of the following occur: Trouble breathing Hard to wake up or confusion Fainting or loss of consciousness Rapid heart rate When to seek medical advice Call your healthcare provider right away if any of these occur: Fever of 100.4 F (38.0 C) or higher, or as directed by your healthcare provider Symptoms are not better by the third day of treatment Back or belly (abdominal) pain that gets worse Repeated vomiting, or unable to keep medicine down Weakness or dizziness Vaginal discharge Pain, redness, or swelling in the outer vaginal area (labia) [id number] [employer]. [address] [place] [address], [place] [address]. All rights reserved. This information is not intended as a substitute for professional medical care. Always follow your healthcare professional's instructions. Additional Information VACCINATE! IT SAVES LIVES! Members of the community who have not yet received the COVID-19 vaccine and would like to receive it can visit one of [facility] vaccine clinics. There are many vaccine clinic locations within the State. For locations and available times, please visit [email or web address] [email or web address] It is important to note that some COVID mobile vaccine clinics are held outdoors and may be canceled in rainy or stormy conditions. To learn more about pediatric vaccinations (ages 5-11), we invite you to visit the [facility] webpage. [email or web address] [email or web address] To learn more about the COVID-19 vaccine, we invite you to visit the CDC website for a list of frequently asked questions. https://www.cdc.gov/coronavirus/ 2019-ncov/vaccines/faq.html [facility] Patient Portal Access Instructions: Stay connected with your healthcare team and access your personal medical information anytime with the [facility] Patient Portal. If you would like a full copy of your medical records please contact the [facility] Medical Records Department Wednesday through Wednesday between 8a.m. and 4:30p.m. Please follow the directions below to access the portal: 1.Access the email account you provided upon registration to the hospital.2.Look for an invitation email from [facility].3.Open the email and access the invitation link: Accept Invitation to [facility]4.Fill in the required abdalla to create your account. Sign into www.[employer] with your username and password that you created in the above steps to stay up to date. You can then view a summary of results, a summary of your visits, and the ability to download your summaries to your computer or send the information securely to a physician. Remember that your healthcare information is confidential, so carefully consider who you will allow to register on the [facility] Patient Portal for access to your information. You can also access the [facility] Patient Portal on the [facility]. Simply click on Health Records under Health Data and then click on the [facility] logo. HOW TO SAFELY DISPOSE OF PRESCRIPTION MEDICATIONS Please use one of the following methods to safely dispose of your unused medications. 1.Use a drug disposal kit: the drug disposal pouch allows you to safely discard your old and unused drugs. Ask your nurse to give you one when you are discharged.2.Visit a local take-back location: Many local pharmacies and police departments have programs that collect old and unwanted prescription drugs. Call your local pharmacy or go to http://Haivision.Shwrüm/[email or web address] to find one close to you.3.Make use of household items: Use cat litter or old coffee grounds to dispose medications if other options are not available. Mix your drugs with these household products, seal them in an airtight container and throw it into the garbage. Call [facility]: [phone] to be sure your drugs can be disposed of in this way. Some medicines may require a different approach.4.Never flush your medications down the toilet. IF YOU HAVE BEEN PRESCRIBED AN OPIOIDS FOR PAIN If you have been prescribed an opioid (such as hydrocodone, oxycodone or morphine), it is critical to understand the possible side effects and risks of opioid pain medications. Even when taken as directed, opioids can have several side effects including: Tolerance, meaning you might need to take more of a medication for the same pain relief. Nausea, vomiting and/or constipation. Sleepiness, dizziness, dry mouth, confusion, depression or itching. Physical dependence, meaning you have withdrawal symptoms when a medication is stopped ? this can develop within a few days. KNOW YOUR RESPONSIBILITIES It is important to know exactly how much and how often to take the opioid pain medications you are prescribed. Never take opioids in higher amounts or more often than prescribed. Do not combine opioids with alcohol or other drugs that cause drowsiness, such as benzodiazepines, also known as benzos, including diazepam and alprazolam, muscle relaxants or sleep aids. Never sell or share prescription opioids. This is illegal. Store opioids in a secure place and out of reach of others (including children, family, friends and visitors). The last page(s) of this document has been signed and retained as a CHART COPY Signatures Patient Education Materials Urinary Tract Infections in Women Bladder Infection, Female (Adult) Medication Leaflets cephalexin My discharge plan and instructions have been reviewed and explained to me and IRAHEEM JENNIFER D understand my current condition and have read and understand these discharge instructions. I have received a written copy of the plan/instructions. If I have questions, I am aware that I should contact my doctor. Patient/Hospital Attendant Signature: Date/Time: Relationship to Patient: Witness Name/Signature: Date/Time: [facility] 05-04-2022 Evaluation + Plan note Diagnostic Tests PendingUrine Culture 05/04/[address] [facility] 02-02-2022 Hospital Discharge instructions Patient Education 02/02/2022 17:54:55 Abdominal Pain, Unknown Cause, (Female) Unknown Causes of Abdominal Pain (Female) The exact cause of your belly (abdominal) pain is not clear. This does not mean that this is something to worry about. Everyone likes to know the exact cause of the problem. But sometimes with belly pain, there is no clear-cut cause, and this could be a good thing. The good news is that your symptoms can be treated, and you will feel better. Your condition does not seem serious now. But sometimes the signs of a serious problem may take more time to appear. For this reason, it is important for you to watch for any new symptoms, problems, or worsening of your condition. Over the next few days, the abdominal pain may come and go. Or it may be constant. Other common symptoms can include nausea and vomiting. Sometimes it can be difficult to tell if you feel nauseous. You may just feel bad and not connect that feeling to nausea. Constipation, diarrhea, and a fever may go along with the pain. The pain may continue even if treated correctly over the following days. Depending on how things go, sometimes the cause can become clear and may need more or different treatment. Additional evaluations, medicines, or tests may also be needed. Home care Your healthcare provider may prescribe medicine for pain, symptoms, or an infection. Follow the healthcare provider's instructions for taking these medicines. General care Rest as much as you can until your next exam. No strenuous activities. Try to find positions that ease discomfort. A small pillow placed on the abdomen may help relieve pain. Something warm on your abdomen (such as a heating pad) may help, but be careful not to burn yourself. Diet Don t force yourself to eat, especially if having cramps, vomiting, or diarrhea. Water is important so you don't get dehydrated. Soup may also be good. Sports drinks may also help, especially if they are not too acidic. Don't drink sugary drinks as this can make things worse. Take liquids in small amounts. Don t guzzle them. Caffeine sometimes makes the pain and cramping worse. Don t take dairy products if you have vomiting or diarrhea. Don't eat large amounts at a time. Wait a few minutes between bites. Eat a diet low in fiber (called a low-residue diet). Foods allowed include refined breads, white rice, fruit and vegetable juices without pulp, tender meats. These foods will pass more easily through the intestine. Don t have whole-grain foods, whole fruits and vegetables, meats, seeds and nuts, fried or fatty foods, dairy, alcohol and spicy foods until your symptoms go away. Follow-up care Follow up with your healthcare provider, or as advised, if your pain does not begin to improve in the next 24 hours. Call 911 Call 911 if any of these occur: Trouble breathing Confusion Fainting or loss of consciousness Rapid heart rate Seizure When to seek medical advice Call your healthcare provider right away if any of these occur: Pain gets worse or moves to the right lower abdomen New or worsening vomiting or diarrhea Swelling of the abdomen Unable to pass stool for more than 3 days Fever of 100.4 F (38 C) or higher, or as directed by your healthcare provider. Blood in vomit or bowel movements (dark red or black color) Yellow color of eyes and skin (jaundice) Weakness, dizziness Chest, arm, back, neck, or jaw pain Unexpected vaginal bleeding or missed period Can't keep down liquids or water and you are getting dehydrated [id number] [employer]. [address] [place] [address], [place] [address]. All rights reserved. This information is not intended as a substitute for professional medical care. Always follow your healthcare professional's instructions. Follow Up Care 02/02/2022 13:28:47 With:DUSTY HEAD Address: [address] [place] [address]- [phone] When:2-4 days [facility] Winterrey Larios 02-02-2022 Note Discharge Instructions Thank you for allowing [facility] to assist you with your healthcare needs. The following is important discharge information regarding your hospital visit. Diagnosis from Today's Visit Vomiting Cough Abdominal pain - cause unknown What to Do Next Instructions from Your Care Team Discharge Return to Work, School, or Sports (Return to Work, School, or Sports) - Ordered -- 02/04/22, May return to: work, 02/02/22 17:57:00 EST Post Acute Orders No qualifying data available. You Need to Schedule the Following Appointments Follow Up with DUSTY HEAD When Within 2-4 days Where: [address] [place], [place] [address] [address] [phone] Allergies aspirin Medications Please ask your primary doctor or pharmacist before taking any other medication not listed, including over the counter drugs, herbal medications, vitamins and or supplements as they may interact with your home medications. What How Much When Why Instructions Last Dose Changed benzonatate (Tessalon Perles 100 mg oral capsule) 1 cap by mouth Three (3) times a day as needed for as needed for cough Bronchitis Duration: 7 Days Changed benzonatate (Tessalon Perles 100 mg oral capsule) 1 cap by mouth Three (3) times a day as needed for as needed for cough Duration: 7 Days Printed Prescription Changed ondansetron (Zofran 4 mg oral tablet) 1 tab(s) by mouth Every 8 hours as needed for Nausea/Vomiting Duration: 5 Days Printed Prescription Changed ondansetron (Zofran ODT) by mouth Three (3) times a day Unchanged albuterol (albuterol MDI (90 mcg/ inh) CFC free inhalation aerosol) INHALE 2 PUFFS EVERY 4 HOURS NEEDED FOR COUGH OR SHORT BREATHS Unchanged amitriptyline (amitriptyline 25 mg oral tablet) TAKE 1 TABLET BY MOUTH TWICE A DAY Unchanged azithromycin (Zithromax Z-Hi 250 mg oral tablet) 1 dose by mouth Every day Bronchitis Duration: 5 Days Unchanged carvedilol (Coreg 12.5 mg oral tablet) 1 tab(s) by mouth Twice daily with meals Unchanged cephalexin (cephalexin 500 mg oral capsule) 1 cap by mouth Three (3) times a day UTI - Urinary tract infection Duration: 5 Days Unchanged cetirizine (Zyrtec 10 mg oral tablet) 1 tab(s) by mouth Daily at bedtime Unchanged cholecalciferol (Vitamin D3 50,000 intl units oral capsule) 1 cap by mouth Every week Unchanged citalopram (citalopram 40 mg oral tablet) TAKE 1 TABLET BY MOUTH EVERY DAY Unchanged DME (DME MISCellaneous) See instructions yduy sensor 14 day Unchanged DME (DME MISCellaneous) See instructions Diabetes mellitus type 2 Yudy reader.. Unchanged DME (DME MISCellaneous) See instructions Diabetes mellitus type 2 Gastroparesis due to secondary diabetes yudy sensor 14 day # 6 Use as directed. Unchanged DME (DME MISCellaneous) See instructions Freestyle Yudy Medanales Unchanged DME (DME MISCellaneous) See instructions Freestyle Yudy Sensors Unchanged gabapentin (gabapentin 300 mg oral capsule) 1 cap by mouth Daily at bedtime Unchanged hydroCHLOROthiazide-losartan (hydrochlorothiazide-losartan 25-100 mg oral tablet) 1 tab(s) by mouth Every day Unchanged insulin aspart (Novolog) (NovoLOG FlexPen 100 units/ mL injectable solution) 15 unit(s) Subcutaneous Three (3) times a day before meals Unchanged insulin isophane (NPH) (NovoLIN N 100 units/ mL 10 mL vial) See Instructions Subcutaneous patient takes 37 units at breakfast and 37 units at bedtime Unchanged metFORMIN (metFORMIN 1000 mg oral tablet) 1 tab(s) by mouth Once a day TAKE 1 TABLET BY MOUTH TWICE A DAY Unchanged Misc Medication ([employer] ALCOHOL 70% PREP PADS) FOR USE WITH TESTING BLOOD SUGARS DIRECTED TESTS 4 TIMES DAILY Unchanged Misc Medication (FREESTYLE LITE TEST STRIP) PATIENT TESTS 4 TIMES DAILY Unchanged potassium chloride (Klor-Con 10) 10 Milliequivalent by mouth Once a day Please take this list to your next doctor s visit. Bring all medications you take, including over the counter medications, herbals and other supplements with you to your doctor s visit. Patients and families are reminded to discard old lists and to update any records with all medication providers or retail pharmacies. Medication Leaflets benzonatate (kalyan sher) Germaine Jernigan What is the most important information I should know about benzonatate? Never suck or chew on a benzonatate capsule. Swallow the pill whole. Sucking or chewing the capsule may cause serious side effects. Benzonatate is not approved for use by anyone younger than 10 years old. An overdose of benzonatate can be fatal to a young child. What is benzonatate? Benzonatate is used to relieve coughing. Benzonatate is a non-narcotic cough medicine that numbs the throat and lungs, making the cough reflex less active. Benzonatate may also be used for purposes not listed in this medication guide. What should I discuss with my healthcare provider before taking benzonatate? You should not use this medicine if you are allergic to benzonatate or topical numbing medicines such as tetracaine or procaine (found in some insect bite and sunburn creams). Tell your doctor if you are or . Benzonatate is not approved for use by anyone younger than 10 years old. An overdose of benzonatate can be fatal, especially to a young child who has accidentally swallowed the medicine. How should I take benzonatate? Follow all directions on your prescription label and read all medication guides or instruction sheets. Use the medicine exactly as directed. Never suck or chew on a benzonatate capsule. Swallow the pill whole. Sucking or chewing the capsule may cause serious side effects. Store at room temperature away from moisture, heat, and light. What happens if I miss a dose? Skip the missed dose and use your next dose at the regular time. Do not use two doses at one time. What happens if I overdose? Seek emergency medical attention or call the Poison Help line at . An overdose of benzonatate can be fatal, especially to a child. Accidental has occurred in children under 10 years old. Overdose symptoms may include tremors, feeling restless, seizure (convulsions), slow heart rate, weak pulse, fainting, and slow breathing (breathing may stop). What should I avoid while taking benzonatate? Avoid eating or drinking anything while you feel numbness or tingling in your mouth or throat. What are the possible side effects of benzonatate? Stop taking this medicine and get emergency medical help if you have signs of an allergic reaction: hives; difficult breathing; swelling of your face, lips, tongue, or throat. Call your doctor at once if you have: severe drowsiness or dizziness; confusion, hallucinations. ongoing numbness or tingling in your mouth, throat, or face; numbness in your chest; a choking feeling; chills; or burning in your eyes. Some of these side effects may result from chewing or sucking on a benzonatate capsule. Common side effects may include: headache, dizziness; nausea, upset stomach; constipation; itching, rash; or stuffy nose. This is not a complete list of side effects and others may occur. Call your doctor for medical advice about side effects. You may report side effects to FDA at 5-915-CWT-6444. What other drugs will affect benzonatate? Using benzonatate with other drugs that make you drowsy can worsen this effect. Ask your doctor before using opioid medication, a sleeping pill, a muscle relaxer, or medicine for anxiety or seizures. Other drugs may affect benzonatate, including prescription and jcbl-ytf-geuyzfa medicines, vitamins, and herbal products. Tell your doctor about all your current medicines and any medicine you start or stop using. Where can I get more information? Your pharmacist can provide more information about benzonatate. Remember, keep this and all other medicines out of the reach of children, never share your medicines with others, and use this medication only for the indication prescribed. Every effort has been made to ensure that the information provided by [employer]. ('[employer]') is accurate, up-to-date, and complete, but no guarantee is made to that effect. Drug information contained herein may be time sensitive. [employer] information has been compiled for use by healthcare practitioners and consumers in the [place] and therefore [employer] does not warrant that uses outside of the [place] are appropriate, unless specifically indicated otherwise. [employer] drug information does not endorse drugs, diagnose patients or recommend therapy. [employer] drug information is an informational resource designed to assist licensed healthcare practitioners in caring for their patients and/or to serve consumers viewing this service as a supplement to, and not a substitute for, the expertise, skill, knowledge and judgment of healthcare practitioners. The absence of a warning for a given drug or drug combination in no way should be construed to indicate that the drug or drug combination is safe, effective or appropriate for any given patient. [employer] does not assume any responsibility for any aspect of healthcare administered with the aid of information [facility] provides. The information contained herein is not intended to cover all possible uses, directions, precautions, warnings, drug interactions, allergic reactions, or adverse effects. If you have questions about the drugs you are taking, check with your doctor, nurse or pharmacist. Copyright 9558-2826 [facility]. Version: 9.01. Revision Date: 11/24/2018. ondansetron (oral) (on NORBERTO se dona) Jabari Barboza [employer] What is the most important information I should know about ondansetron? You should not use ondansetron if you are also using apomorphine (Apokyn). What is ondansetron? Ondansetron blocks the actions of chemicals in the body that can trigger nausea and vomiting. Ondansetron is used to prevent nausea and vomiting that may be caused by surgery, cancer chemotherapy, or radiation treatment. Ondansetron may be used for purposes not listed in this medication guide. What should I discuss with my health care provider before taking ondansetron? You should not use ondansetron if: you are also using apomorphine (Apokyn); or you are allergic to ondansetron or similar medicines (dolasetron, granisetron, palonosetron). To make sure ondansetron is safe for you, tell your doctor if you have: liver disease; an electrolyte imbalance (such as low levels of potassium or magnesium in your blood); congestive heart failure, slow heartbeats; a personal or family history of long QT syndrome; or a blockage in your digestive tract (stomach or intestines). Ondansetron is not expected to harm an unborn baby. Tell your doctor if you are . It is not known whether ondansetron passes into breast milk or if it could harm a nursing baby. Tell your doctor if you are breast-feeding a baby. Ondansetron is not approved for use by anyone younger than 4 years old. Ondansetron orally disintegrating tablets may contain phenylalanine. Tell your doctor if you have phenylketonuria (PKU). How should I take ondansetron? Follow all directions on your prescription label. Do not take this medicine in larger or smaller amounts or for longer than recommended. Ondansetron can be taken with or without food. The first dose of ondansetron is usually taken before the start of your surgery, chemotherapy, or radiation treatment. Follow your doctor's dosing instructions very carefully. Take the ondansetron regular tablet with a full glass of water. To take the orally disintegrating tablet (Zofran ODT): Keep the tablet in its blister pack until you are ready to take it. Open the package and peel back the foil. Do not push a tablet through the foil or you may damage the tablet. Use dry hands to remove the tablet and place it in your mouth. Do not swallow the tablet whole. Allow it to dissolve in your mouth without chewing. Swallow several times as the tablet dissolves. To use ondansetron oral soluble film (strip) (Zuplenz): Keep the strip in the foil pouch until you are ready to use the medicine. Using dry hands, remove the strip and place it on your tongue. It will begin to dissolve right away. Do not swallow the strip whole. Allow it to dissolve in your mouth without chewing. Swallow several times after the strip dissolves. If desired, you may drink liquid to help swallow the dissolved strip. Wash your hands after using Zuplenz. Measure liquid medicine with the dosing syringe provided, or with a special dose-measuring spoon or medicine cup. If you do not have a dose-measuring device, ask your pharmacist for one. Store at room temperature away from moisture, heat, and light. Store liquid medicine in an upright position. What happens if I miss a dose? Take the missed dose as soon as you remember. Skip the missed dose if it is almost time for your next scheduled dose. Do not take extra medicine to make up the missed dose. What happens if I overdose? Seek emergency medical attention or call the Poison Help line at . Overdose symptoms may include sudden loss of vision, severe constipation, feeling light-headed, or fainting. What should I avoid while taking ondansetron? Ondansetron may impair your thinking or reactions. Be careful if you drive or do anything that requires you to be alert. What are the possible side effects of ondansetron? Get emergency medical help if you have signs of an allergic reaction: rash, hives; fever, chills, difficult breathing; swelling of your face, lips, tongue, or throat. Call your doctor at once if you have: severe constipation, stomach pain, or bloating; headache with chest pain and severe dizziness, fainting, fast or pounding heartbeats; fast or pounding heartbeats; jaundice (yellowing of the skin or eyes); blurred vision or temporary vision loss (lasting from only a few minutes to several hours); high levels of serotonin in the body--agitation, hallucinations, fever, fast heart rate, overactive reflexes, nausea, vomiting, diarrhea, loss of coordination, fainting. Common side effects may include: diarrhea or constipation; headache; drowsiness; or tired feeling. This is not a complete list of side effects and others may occur. Call your doctor for medical advice about side effects. You may report side effects to FDA at 0-339-OBR-9285. What other drugs will affect ondansetron? Ondansetron can cause a serious heart problem, especially if you use certain medicines at the same time, including antibiotics, antidepressants, heart rhythm medicine, antipsychotic medicines, and medicines to treat cancer, malaria, HIV or AIDS. Tell your doctor about all medicines you use, and those you start or stop using during your treatment with ondansetron. Taking ondansetron while you are using certain other medicines can cause high levels of serotonin to build up in your body, a condition called 'serotonin syndrome,' which can be fatal. Tell your doctor if you also use: medicine to treat depression; medicine to treat a psychiatric disorder; a narcotic (opioid) medication; or medicine to prevent nausea and vomiting. This list is not complete and many other drugs can interact with ondansetron. This includes prescription and ckes-osn-uxoqeih medicines, vitamins, and herbal products. Give a list of all your medicines to any healthcare provider who treats you. Where can I get more information? Your pharmacist can provide more information about ondansetron. Remember, keep this and all other medicines out of the reach of children, never share your medicines with others, and use this medication only for the indication prescribed. Every effort has been made to ensure that the information provided by [employer]. [employer]') is accurate, up-to-date, and complete, but no guarantee is made to that effect. Drug information contained herein may be time sensitive. [employer] information has been compiled for use by healthcare practitioners and consumers in the [place] and therefore [employer] does not warrant that uses outside of the [place] are appropriate, unless specifically indicated otherwise. [employer] drug information does not endorse drugs, diagnose patients or recommend therapy. [employer] drug information is an informational resource designed to assist licensed healthcare practitioners in caring for their patients and/or to serve consumers viewing this service as a supplement to, and not a substitute for, the expertise, skill, knowledge and judgment of healthcare practitioners. The absence of a warning for a given drug or drug combination in no way should be construed to indicate that the drug or drug combination is safe, effective or appropriate for any given patient. [employer] does not assume any responsibility for any aspect of healthcare administered with the aid of information [employer] provides. The information contained herein is not intended to cover all possible uses, directions, precautions, warnings, drug interactions, allergic reactions, or adverse effects. If you have questions about the drugs you are taking, check with your doctor, nurse or pharmacist. Copyright 9106-4037 [employer]. Version: 13.01. Revision Date: 12/06/2015. Education Materials Unknown Causes of Abdominal Pain (Female) The exact cause of your belly (abdominal) pain is not clear. This does not mean that this is something to worry about. Everyone likes to know the exact cause of the problem. But sometimes with belly pain, there is no clear-cut cause, and this could be a good thing. The good news is that your symptoms can be treated, and you will feel better. Your condition does not seem serious now. But sometimes the signs of a serious problem may take more time to appear. For this reason, it is important for you to watch for any new symptoms, problems, or worsening of your condition. Over the next few days, the abdominal pain may come and go. Or it may be constant. Other common symptoms can include nausea and vomiting. Sometimes it can be difficult to tell if you feel nauseous. You may just feel bad and not connect that feeling to nausea. Constipation, diarrhea, and a fever may go along with the pain. The pain may continue even if treated correctly over the following days. Depending on how things go, sometimes the cause can become clear and may need more or different treatment. Additional evaluations, medicines, or tests may also be needed. Home care Your healthcare provider may prescribe medicine for pain, symptoms, or an infection. Follow the healthcare provider's instructions for taking these medicines. General care Rest as much as you can until your next exam. No strenuous activities. Try to find positions that ease discomfort. A small pillow placed on the abdomen may help relieve pain. Something warm on your abdomen (such as a heating pad) may help, but be careful not to burn yourself. Diet Don t force yourself to eat, especially if having cramps, vomiting, or diarrhea. Water is important so you don't get dehydrated. Soup may also be good. Sports drinks may also help, especially if they are not too acidic. Don't drink sugary drinks as this can make things worse. Take liquids in small amounts. Don t guzzle them. Caffeine sometimes makes the pain and cramping worse. Don t take dairy products if you have vomiting or diarrhea. Don't eat large amounts at a time. Wait a few minutes between bites. Eat a diet low in fiber (called a low-residue diet). Foods allowed include refined breads, white rice, fruit and vegetable juices without pulp, tender meats. These foods will pass more easily through the intestine. Don t have whole-grain foods, whole fruits and vegetables, meats, seeds and nuts, fried or fatty foods, dairy, alcohol and spicy foods until your symptoms go away. Follow-up care Follow up with your healthcare provider, or as advised, if your pain does not begin to improve in the next 24 hours. Call 911 Call 911 if any of these occur: Trouble breathing Confusion Fainting or loss of consciousness Rapid heart rate Seizure When to seek medical advice Call your healthcare provider right away if any of these occur: Pain gets worse or moves to the right lower abdomen New or worsening vomiting or diarrhea Swelling of the abdomen Unable to pass stool for more than 3 days Fever of 100.4 F (38 C) or higher, or as directed by your healthcare provider. Blood in vomit or bowel movements (dark red or black color) Yellow color of eyes and skin (jaundice) Weakness, dizziness Chest, arm, back, neck, or jaw pain Unexpected vaginal bleeding or missed period Can't keep down liquids or water and you are getting dehydrated [id number] [employer]. [address] [place] [address], [place] [address]. All rights reserved. This information is not intended as a substitute for professional medical care. Always follow your healthcare professional's instructions. Additional Information VACCINATE! IT SAVES LIVES! Members of the community who have not yet received the COVID-19 vaccine and would like to receive it can visit one of [facility] vaccine clinics. There are many vaccine clinic locations within the [facility]. For locations and available times, please visit [email or web address]. org. It is important to note that some COVID mobile vaccine clinics are held outdoors and may be canceled in rainy or stormy conditions. To learn more about pediatric vaccinations (ages 5-11), we invite you to visit the [facility] webpage. https://[email or web address]/p [email or web address]-Anmkz-Yeglymbqccw-Freq fcdjow-Ffhwp-[email or web address].html To learn more about the COVID-19 vaccine, we invite you to visit the [facility] website for a list of frequently asked questions. [email or web address]-[email or web address]-[email or web address]-Y [email or web address]-Questions.pdf [facility] Patient Portal Access Instructions: Stay connected with your healthcare team and access your personal medical information anytime with the [facility] Patient Portal. If you would like a full copy of your medical records please contact the [facility] Medical Records Department Wednesday through Wednesday between 8a.m. and 4:30p.m. Please follow the directions below to access the portal: 1.Access the email account you provided upon registration to the [facility].2.Look for an invitation email from [facility].3.Open the email and access the invitation link: Accept Invitation to [facility].Fill in the required abdalla to create your account. Sign into www.[employer] with your username and password that you created in the above steps to stay up to date. You can then view a summary of results, a summary of your visits, and the ability to download your summaries to your computer or send the information securely to a physician. Remember that your healthcare information is confidential, so carefully consider who you will allow to register on the [facility] Patient Portal for access to your information. You can also access the [employer] Patient Portal on the [facility]. Simply click on Health Records under Health Data and then click on the [employer] logo. HOW TO SAFELY DISPOSE OF PRESCRIPTION MEDICATIONS Please use one of the following methods to safely dispose of your unused medications. 1.Use a drug disposal kit: the drug disposal pouch allows you to safely discard your old and unused drugs. Ask your nurse to give you one when you are discharged.2.Visit a local take-back location: Many local pharmacies and police departments have programs that collect old and unwanted prescription drugs. Call your local pharmacy or go to http://Haivision.Shwrüm/4E1Eh8y to find one close to you.3.Make use of household items: Use cat litter or old coffee grounds to dispose medications if other options are not available. Mix your drugs with these household products, seal them in an airtight container and throw it into the garbage. Call [facility]: [phone] to be sure your drugs can be disposed of in this way. Some medicines may require a different approach.4.Never flush your medications down the toilet. IF YOU HAVE BEEN PRESCRIBED AN OPIOIDS FOR PAIN If you have been prescribed an opioid (such as hydrocodone, oxycodone or morphine), it is critical to understand the possible side effects and risks of opioid pain medications. Even when taken as directed, opioids can have several side effects including: Tolerance, meaning you might need to take more of a medication for the same pain relief. Nausea, vomiting and/or constipation. Sleepiness, dizziness, dry mouth, confusion, depression or itching. Physical dependence, meaning you have withdrawal symptoms when a medication is stopped ? this can develop within a few days. KNOW YOUR RESPONSIBILITIES It is important to know exactly how much and how often to take the opioid pain medications you are prescribed. Never take opioids in higher amounts or more often than prescribed. Do not combine opioids with alcohol or other drugs that cause drowsiness, such as benzodiazepines, also known as benzos, including diazepam and alprazolam, muscle relaxants or sleep aids. Never sell or share prescription opioids. This is illegal. Store opioids in a secure place and out of reach of others (including children, family, friends and visitors). The last page(s) of this document has been signed and retained as a CHART COPY Signatures Patient Education Materials Abdominal Pain, Unknown Cause, (Female) Medication Leaflets benzonatate, ondansetron (oral) My discharge plan and instructions have been reviewed and explained to me and I,CLAIR MACIEL understand my current condition and have read and understand these discharge instructions. I have received a written copy of the plan/instructions. If I have questions, I am aware that I should contact my doctor. Patient/Hospital Attendant Signature: Date/Time: Relationship to Patient: Witness Name/Signature: Date/Time: [facility] 02-02-2022 Note ORIGINAL EXAMINATION: ONE XRAY VIEW OF THE CHEST 02/02/2022 5:15 pm COMPARISON: None. HISTORY: ORDERING SYSTEM PROVIDED HISTORY: Reason for Exam: chest pain FINDINGS: The cardiomediastinal silhouette is stable. Haziness over the bilateral lung bases is felt to represent superimposition of overlying soft tissue structures rather than true consolidation. No large pleural effusion or pneumothorax. No vascular congestion. Dorsal spondylosis. IMPRESSION: No acute radiographic process. Preliminary Report was Dictated by a Resident Interpreted by: Rajesh Stein MD Preliminary Report By: Josafat Ferrara Electronically signed By Rajesh Stein MD Dictated Date: 02/02/2022 5:29:59 PM Prelim Date: 02/02/2022 5:31:20 PM Sign Date: 02/02/2022 5:41:59 PM Ordering Provider: BRIJESH ALANIS [facility] 02-02-2022 Note ORIGINAL EXAMINATION: CT OF THE ABDOMEN AND PELVIS WITH CONTRAST 02/02/2022 5:14 pm TECHNIQUE: CT of the abdomen and pelvis was performed with the administration of intravenous contrast. Multiplanar reformatted images are provided for review. Automated exposure control, iterative reconstruction, and/or weight based adjustment of the mA/kV was utilized to reduce the radiation dose to as low as reasonably achievable. COMPARISON: 05/03/2018. HISTORY: ORDERING SYSTEM PROVIDED HISTORY: Reason for Exam: pain FINDINGS: Mild right basilar subsegmental atelectasis. The liver is unremarkable. Stable mild prominence of the spleen measuring 13.5 cm. The adrenal glands, and pancreas are unremarkable. The kidneys enhance symmetrically without obstructive uropathy. Stable 4 mm right upper pole nephrolithiasis. The ureters and bladder unremarkable. The stomach, small bowel, and colon are unremarkable. Normal appendix is identified. No adnexal mass. No free intraperitoneal fluid or gas. No lymphadenopathy is identified. Nonaneurysmal atherosclerotic abdominal aorta. Small fat containing umbilical hernia. Tiny fat containing left inguinal hernia. Dorsal spondylosis most prominent L5-S1. No acute osseous abnormality. IMPRESSION: No acute process within the abdomen/pelvis. Right 4 mm nonobstructive nephrolithiasis. Preliminary Report was Dictated by a Resident Interpreted by: Rajesh Stein MD Preliminary Report By: Josafat Ferrara Electronically signed By Rajesh Stein MD Dictated Date: 02/02/2022 5:22:26 PM Prelim Date: 02/02/2022 5:28:59 PM Sign Date: 02/02/2022 5:41:06 PM Ordering Provider: [facility] 02-02-2022 Note ORIGINAL EXAMINATION: ONE XRAY VIEW OF THE CHEST 02/02/2022 5:15 pm COMPARISON: None. HISTORY: ORDERING SYSTEM PROVIDED HISTORY: Reason for Exam: chest pain FINDINGS: The cardiomediastinal silhouette is stable. Haziness over the bilateral lung bases is felt to represent superimposition of overlying soft tissue structures rather than true consolidation. No large pleural effusion or pneumothorax. No vascular congestion. Dorsal spondylosis. IMPRESSION: No acute radiographic process. Preliminary Report was Dictated by a Resident Interpreted by: Rajesh Stein MD Preliminary Report By: Josafat Ferrara Electronically signed By Rajesh Stein MD Dictated Date: 02/02/2022 5:29:59 PM Prelim Date: 02/02/2022 5:31:20 PM Sign Date: 02/02/2022 5:41:59 PM Ordering Provider: [facility] 02-02-2022 Note ORIGINAL EXAMINATION: CT OF THE ABDOMEN AND PELVIS WITH CONTRAST 02/02/2022 5:14 pm TECHNIQUE: CT of the abdomen and pelvis was performed with the administration of intravenous contrast. Multiplanar reformatted images are provided for review. Automated exposure control, iterative reconstruction, and/or weight based adjustment of the mA/kV was utilized to reduce the radiation dose to as low as reasonably achievable. COMPARISON: 05/03/2018. HISTORY: ORDERING SYSTEM PROVIDED HISTORY: Reason for Exam: pain FINDINGS: Mild right basilar subsegmental atelectasis. The liver is unremarkable. Stable mild prominence of the spleen measuring 13.5 cm. The adrenal glands, and pancreas are unremarkable. The kidneys enhance symmetrically without obstructive uropathy. Stable 4 mm right upper pole nephrolithiasis. The ureters and bladder unremarkable. The stomach, small bowel, and colon are unremarkable. Normal appendix is identified. No adnexal mass. No free intraperitoneal fluid or gas. No lymphadenopathy is identified. Nonaneurysmal atherosclerotic abdominal aorta. Small fat containing umbilical hernia. Tiny fat containing left inguinal hernia. Dorsal spondylosis most prominent L5-S1. No acute osseous abnormality. IMPRESSION: No acute process within the abdomen/pelvis. Right 4 mm nonobstructive nephrolithiasis. Preliminary Report was Dictated by a Resident Interpreted by: Rajesh Stein MD Preliminary Report By: Josafat Ferrara Electronically signed By Rajesh Stein MD Dictated Date: 02/02/2022 5:22:26 PM Prelim Date: 02/02/2022 5:28:59 PM Sign Date: 02/02/2022 5:41:06 PM Ordering Provider: [facility] 02-02-2022 SARS-CoV-2 (COVID-19) RNA LOBO+probe Ql (Nph) Negative *NA* (02/02/22 3:35 PM) AO Auto Urine SS 08-11-2021 Hospital Discharge instructions Patient Education 08/10/2021 22:46:27 Wrist Sprain Wrist Sprain A sprain is an injury to the ligaments or capsule that holds a joint together. There are no broken bones. Most sprains take about 3 to 6 weeks to heal. If it a severe sprain where the ligament is completely torn, it can take months to recover. Most wrist sprains are treated with a splint, wrist brace, or elastic wrap for support. Severe sprains may require surgery. Home care Keep your arm elevated to reduce pain and swelling. This is very important during the first 48 hours. Apply an ice pack over the injured area for 15 to 20 minutes every 3 to 6 hours. You should do this for the first 24 to 48 hours. You can make an ice pack by filling a plastic bag that seals at the top with ice cubes and then wrapping it with a thin towel. Continue to use ice packs for relief of pain and swelling as needed. As the ice melts, be careful to avoid getting your wrap, splint, or cast wet. After 48 hours, apply heat (warm shower or warm bath) for 15 to 20 minutes several times a day, or alternate ice and heat. You may use cgjr-kdr-kpzwfrr pain medicine to control pain, unless another pain medicine was prescribed. If you have chronic liver or kidney disease or ever had a stomach ulcer or gastrointestinal bleeding, talk with your doctor before using these medicines. If you were given a splint or brace, wear it for the time advised by your doctor. Follow-up care Follow up with your healthcare provider, or as advised. Any X-rays you had today don t show any broken bones, breaks, or fractures. Sometimes fractures don t show up on the first X-ray. Bruises and sprains can sometimes hurt as much as a fracture. These injuries can take time to heal completely. If your symptoms don t improve or they get worse, talk with your doctor. You may need a repeat X-ray. If X-rays were taken, you will be told of any new findings that may affect your care. When to seek medical advice Call your healthcare provider right away if any of these occur: Pain or swelling increases Fingers or hand becomes cold, blue, numb, or tingly [id number] [employer]. [address] [place] [address]. All rights reserved. This information is not intended as a substitute for professional medical care. Always follow your healthcare professional's instructions. Follow Up Care 08/10/2021 19:30:27 With:BECKY GARCIA MD Address: [address] [facility] [place] [facility] [place] [address]- [phone] When:2-4 days With:DUSTY HEAD Address: [address] [place] [address]- [phone] When:2-[address] [facility] 06-18-2021 Hospital Discharge instructions Patient Education 06/17/2021 23:01:15 Diabetes: Exams and Tests Diabetes: Exams and Tests For your diabetes care, you may see your primary care provider or a specialist 2 to 4 times a year. This page lists some of the regular exams and tests advised for people with diabetes. To learn more, contact the [place] [employer] (147-035-1399 or www.diabetes.org). Tests and vaccines These should be done at least as often as stated below: Blood pressure check. Every healthcare provider visit. A1C. At first, every 3 months. If controlled, then every 3 to 6 months. Cholesterol and blood lipid tests. At least every 12 months. Urine tests for kidney function. Every 12 months. Flu shots. Once a year. Pneumonia shot. Ask your provider which pneumonia vaccines are right for you. Hepatitis B shots. As soon as possible if you re younger than 60. Or as advised by your healthcare provider after age 60. Shingles vaccine. After age 60. Get the shot even if you have had shingles. Or if you had a past shingles vaccine. Other tests or vaccines. As advised by your provider. Individualized medical nutrition therapy. At least once. Then as needed. Stop smoking counseling. If you still smoke, at each visit. Regular exams The following exams help keep you healthy. Foot exams Nerve and blood vessel problems can affect your feet first. Have your healthcare provider check your feet at every office visit. Take your shoes and socks off in the exam room. This will help remind you to get your feet checked. Also check your feet at home every day. Look for pressure sores or injuries. Contact your provider if you see problems. Eye exams You can have problems with your eyes even if you don t have trouble seeing. An eye healthcare provider (skating rink manager) or specially trained chaplain will give you a dilated eye exam at least once a year. Tell your healthcare provider right away if you: See dark spots Don't see well in dim light Have eye pain or pressure Have any other problems Dental exams Gum disease (also called periodontal disease) and other mouth problems are common in people with diabetes. To help prevent these problems, see your dentist 2 or more times a year. Tell your dentist that you have diabetes. Ask your healthcare provider what other exams you ll need on a regular basis. [phone] [employer]. [address] [place] [address], [place] [address]. All rights reserved. This information is not intended as a substitute for professional medical care. Always follow your healthcare professional's instructions. Follow Up Care 06/17/2021 22:46:39 With:PHIL BUI Address: [address] [place] [address]- [phone] Business (1) When:2-4 days Comments:Schedule appointment for close follow-up if you continue to get low blood sugar or error readings from your glucometer.Continue all routine medications.Return to the ED if symptoms worsen. [facility] 02-06-2021 Hospital Discharge instructions Follow Up Care 02/06/2021 16:41:08 With:DUSTY HEAD Address: [address] [place] [address]- [phone] When:2-[address] [facility] 02-06-2021 Evaluation + Plan note Diagnostic Tests PendingUrine Culture 02/06/[address] [facility] 04-25-2020 Note Patient Outreach ([place] [facility]) CLAIR MACIEL ([id number]) 1975 F Date Time Provider Department 3/11/21 TEZ BARRAZA During your visit today, we recorded the following information about you: Allergies As of Date: 04/25/2020 Noted Allergy Reaction ASPIRIN 05/06/2018 10 - Anaphylaxis Comments: Hives, itching, swelling. Date Reviewed: 05/31/2018 Reviewed by: Hannah Orozco - Fully Assessed Order(s):SARS-COVID VACCINE 1ST DOSE APPT [[id number]] Order #: [id number] FUTURE Prescriptions as of 04/25/2020 Sig: NYSTATIN 100,000 UNIT/GRAM PO* Nystatin Nystatin 1 APPLIC TO* ALBUTEROL SULFATE HFA 90 MCG/* Albuterol Albuterol Sulfate [* MONTELUKAST 10 MG TABLET 10 mg. CETIRIZINE 5 MG-PSEUDOEPHEDRI* 1 tablet. AMITRIPTYLINE 25 MG TABLET Take 25 mg by mouth twice barb* CARVEDILOL 12.5 MG TABLET Take 12.5 mg by mouth twice d* CHOLECALCIFEROL (VITAMIN D3) * Take 1 capsule by mouth once * LOSARTAN 100 MG-HYDROCHLOROTH* Take 1 tablet by mouth once d* METFORMIN 1,000 MG TABLET Take 1,000 mg by mouth twice * ONDANSETRON HCL 8 MG TABLET Take 8 mg by mouth twice chris* HUMULIN 70/30 PEN SUBCUTANEOUS Inject subcutaneously. Taking* HUMALOG PEN SUBCUTANEOUS Inject subcutaneously three t* CITALOPRAM 40 MG TABLET Take 40 mg by mouth once chris* LEVOTHYROXINE 50 MCG TABLET Take 50 mcg by mouth daily be* Problem List As Of Date 04/25/2020 Noted Resolved Type 2 diabetes mellitus (HCC) [E11.9] 05/06/2018 Encounter Status:Closed by FLORIDALMA PRODUSER on 04/29/20 [facility] course Narrative No data available for this section [facility] Progress note No data available for this section [facility] Summary Purpose Family History No Family History Records FoundNo Family History Records FoundNo Family History Records FoundNo Family History Records FoundNo Family History Records Found Advance Directives No Advanced Directives Records FoundNo Advanced Directives Records FoundNo Advanced Directives Records FoundNo Advanced Directives Records FoundNo Advanced Directives Records Found Additional Source Comments INFORMATION SOURCE (unrecogn ized section and content) DATE CREATED AUTHOR AUTHOR'S ORGANIZ ATION 05/15/2018 [facility] DATE CREATED AUTHOR AUTHOR'S ORGANIZ ATION 05/21/2018 [facility] DATE CREATED AUTHOR AUTHOR'S ORGANIZ ATION 03/26/2021 [facility] DATE CREATED AUTHOR AUTHOR'S ORGANIZ ATION 05/11/2022 [facility]) Care Team (unrecognized sect ion and content) Personnel Name: DUSTY HEAD Address: [address] [place] [id number]- [place] Care Team Personnel Name: DUSTY HEAD Member Role: Primary Care Physician Address: Address: [address] [place] [address]- [place] Name: GEETA CLAY MD Position: ED Physician Member Role: ED Physician Address: Address: [facility] [address] [place] [address]- [place] Name: Tresa Espino RN Position: RN Member Role: RN Name: KRUNAL BAZAN DO Position: Resident Member Role: Resident Address: Address: [address] [place] [address] [place] [address]- [place] Care Team Related Persons Name: DOMINIQUE MACIELDA Address: Home [address] [place] [phone] [place] Name: DOMINIQUE MACIELDA Address: Home [address] [place] [phone] [place] Name: RAHEEM CRIS Address: Home [address] [place] [address] [phone] [place] Name: RAHEEM CRIS Address: Home [address] [place] [address] [phone] [place] Name: DOMINIQUE MACIELDA Address: Home [address] [place] [phone] [place] Name: DOMINIQUE MACIELDA Address: [address] [phone] [place] Name: DOMINIQUE MACIELDA Address: Home [address] [place] [phone] [place] Care Team (unrecognized sect ion and content) Personnel Name: HEAD, DUSTY SOLE SEWER HAND-PROOF CLERK Address: Address: [address] [place] [address]- Care Team Personnel Name: HEAD, LORI FLORENCIA-PROOF CLERK Member Role: Primary Care Physician Address: Address: [address] [place] [address]- [place] Name: BRIJESH ALANIS DO Position: Resident Member Role: Resident Address: Address: [address] [facility] [place] [address]- [place] Name: MD WADE SOLOMON MD Position: ED Physician Member Role: ED Physician Address: Address: [facility] [address] [place] [address]- [place] Care Team Related Persons Name: CRIS MACIEL Address: [address] [phone] [place] Name: DOMINIQUE MACIELDA Address: [address] [phone] [place] Name: DOMINIQUE MACIELDA Address: [address] [phone] [place] Name: CRIS MACIEL Address: [address] [phone] [place] Name: CRIS MACIEL Address: Home [address] [place] [phone] [place] Name: CRIS MACIEL Address: [address] [phone] [place] Name: CRIS MACIEL Address: [address] [phone] FOR RECORDS PERTAINING TO PATIENTS WHO ARE OR HAVE BEEN ENROLLED IN A CHEMICAL DEPENDENCY/SUBSTANCEABUSE PROGRAM, SOME INFORMATION MAY BE OMITTED. This clinical summary was aggregated from multiple sources. Caution should be exercised in using it in the provision of clinical care. This summary normalizes information from multiple sources, and as a consequence, information in this document may materially change the coding, format and clinical context of patient data. In addition, data may be omitted in some cases. CLINICAL DECISIONS SHOULD BE BASED ON THE PRIMARY CLINICAL RECORDS. [employer] provides no warranty or guarantee of the accuracy or completeness of information in this document.
[2023-02-23 17:48] LABS: Microalbumin,Random Urine 41.5 mg/L (NO RANGE EST.); Microalbumin:Creatinine Ratio 26.3 mg/g CRE (<30 mg/g CRE)
[2023-02-25 12:08] LABS: ANTINUCLEAR ANTIBODIES DIRECT Negative (Negative); C-Peptide 10.9 ng/mL (1.1-4.4)
== END | disposition home or self-care (01) ==
LOC: LAB 15:42
PROVIDERS: Visit Provider Internal Medicine Endocrinology, Diabetes & Metabolism
DX: E11.9 Type 2 diabetes mellitus without complications (principal); E03.9 Hypothyroidism, unspecified; I10 Essential (primary) hypertension; E55.9 Vitamin D deficiency, unspecified
CPT/HCPCS: 36415; 80053; 80061; 82043; 82306; 82570; 84439; 84443; 84681; 86038

== ENCOUNTER 2023-03-04 14:09 | Emergency (ER) | payer BC, MEDICAID, SELFPAY ==
[2023-03-04 14:10] VITALS: BP 124/97; PULSE 82; RESP 17; TEMP 36; O2SAT 98; BMI 44.3
--- NOTE | 2023-03-04 15:51 | EX.ED.VIS.UR ---
HPI HPI - URI History of Present Illness Chief Complaint: Cold Sx Narrative Narrative: 47-year-old female presenting with cough, nasal congestion, sputum production. Patient states has been sick for about a week. Denies fever but does have chills. She also has bodyaches. Patient states on Wednesday she was tested for COVID, influenza, RSV and these were all negative. She still having coughing and congestion. She states is worse when she lays down at night she coughs more. No nausea or vomiting. No chest pain. ROS ROS ED Constitutional Constitutional ED: Reports chills; Denies fever(s) or sweats Eyes Eyes: Denies blurry vision or change in vision ENT ENT ED: Reports rhinorrhea; Denies ear pain Cardiovascular Cardiovascular: Denies chest pain, palpitations or racing heartbeat Respiratory/Chest Respiratory/Chest: Reports cough; Denies sputum Gastrointestinal Gastrointestinal: Denies abdominal pain, constipation, diarrhea, nausea or vomiting Genitourinary Genitourinary ED: Denies dysuria, hematuria or urinary frequency Musculoskeletal Musculoskeletal: Denies arthralgias, myalgias or neck pain Integumentary Denies abscess, Abrasions or rash Neurologic Neurologic: Denies headache(s), paresthesias or weakness Psychiatric Psychiatric: Denies anxiety, depression, suicidal ideation or suicidal thoughts Endocrine Endocrinology: Denies polydipsia or polyuria [facility] Medical History Acid reflux Alcohol abuse Anxiety Back problem Bone fracture Chronic bronchitis Chronic headaches Depression Diabetes Drug abuse Edema Gastroparesis H/O emotional problems H/O urinary tract infection Hypothyroidism Neuropathy PCOS (polycystic ovarian syndrome) Seasonal allergies Sleep apnea Thyroid nodule Vitiligo Home Medications albuterol sulfate 90 mcg/actuation aerosol inhaler (Ventolin HFA) 2 puff inhalation Q6H 05/12/17 [History Last Taken Unknown] carvedilol 12.5 mg tablet 12.5 mg PO BID 05/12/17 [History Last Taken Unknown] flash glucose scanning reader ([employer] Yudy 2 Porum) #1 ea 11/30/19 [Rx Last Taken Unknown] glucose 4 gram chewable tablet 4 g PO Q15M PRN hypoglycemia #90 tabs 02/01/20 [Rx Last Taken Unknown] citalopram 40 mg tablet 40 mg PO DAILY 04/18/20 [History Last Taken Unknown] compr.stocking,knee,long,large #2 ea 04/18/20 [Rx Last Taken Unknown] levothyroxine 125 mcg tablet 125 mcg PO DAILY #30 tabs 07/09/20 [Rx Last Taken Unknown] vitamin B complex (B Complex-Vitamin B12 tablet) 1 tab PO DAILY #30 tabs 02/09/21 [Rx Last Taken Unknown] amitriptyline 50 mg tablet 50 mg PO QHS 09/03/21 [History Last Taken Unknown] furosemide 20 mg tablet 30 mg PO BID 09/03/21 [History Last Taken Unknown] ondansetron HCl 8 mg tablet (Zofran) 8 mg PO .prn 09/03/21 [History Last Taken Unknown] pantoprazole 40 mg tablet,delayed release (Protonix) 40 mg PO DAILY 09/03/21 [History Last Taken Unknown] potassium chloride 10 mEq capsule,extended release ea PO 11/07/21 [History Last Taken Unknown] cyclobenzaprine 10 mg tablet 10 mg PO TID PRN muscle spasm #20 tabs 11/20/21 [Rx Last Taken Unknown] pen needle, diabetic 32 gauge x 5/32 (BD Ultra-Fine Angela Pen Needle) #150 ea 02/20/22 [Rx Last Taken Unknown] metformin 1,000 mg tablet 1,000 mg PO DAILY #180 tabs 04/15/22 [Rx Last Taken Unknown] FreeStyle Yudy 3 Sensor (blood-glucose sensor) #6 ea 10/08/22 [Rx Last Taken Unknown] ferrous sulfate 325 mg (65 mg iron) tablet 325 mg PO DAILY #30 tabs 10/08/22 [Rx Last Taken Unknown] gabapentin 300 mg capsule 300 mg PO BID #60 caps 10/08/22 [Rx Last Taken Unknown] insulin aspart U-100 100 unit/mL (3 mL) subcutaneous pen (Novolog FlexPen U-100 Insulin aspart) 40 unit (0.4 mL) subcut TID #36 mL 02/25/23 [Rx Last Taken Unknown] insulin glargine 100 unit/mL (3 mL) subcutaneous pen (Lantus Solostar U-100 Insulin) 80 unit (0.8 mL) subcut DAILY #24 mL 02/25/23 [Rx Last Taken Unknown] losartan 100 mg tablet 100 mg PO DAILY #30 tabs 02/25/23 [Rx Last Taken Unknown] Trulicity 3 mg/0.5 mL subcutaneous pen injector (dulaglutide) 3 mg (0.5 mL) subcut QWEEK #2 mL 02/26/23 [Rx Last Taken Unknown] benzonatate 100 mg capsule 100 mg PO TID PRN cough #20 caps 03/04/23 [Rx Last Taken Unknown] cholecalciferol (vitamin D3) 1,250 mcg (50,000 unit) capsule 1,250 mcg PO QWEEK #4 caps 03/04/23 [Rx Last Taken Unknown] codeine 10 mg-guaifenesin 100 mg/5 mL oral liquid 5 ml PO Q6H PRN cold symptoms #120 mL 03/04/23 [Rx Last Taken Unknown] oxymetazoline 0.05 % nasal mist (Afrin (oxymetazoline)) 2 spray intranasal Q12H PRN nasal congestion 3 days #15 mL 03/04/23 [Rx Last Taken Unknown] Allergy/AdvReac Type Severity Reaction Status Date / Time aspirin Allergy Severe Hives Verified 03/04/23 14:11 Family History Father Diabetes Heart disease Hypertension COVID Mother Heart disease Hypertension Ulcer Sister Autoimmune disease vitiligo and lupus Diabetes Surgical History History of salpingectomy S/P cholecystectomy S/P left knee arthroscopy S/P removal of left ovary S/P thyroid biopsy (~05/2017) Social History household members: family current occupational status: employed 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, used methamphetamine caffeine: Yes what type of physical activity do you participate in: walking frequency: 3-4 times per week seatbelt use: always do you feel safe at home: Yes EXAM Physical Exam Const Vital Signs: 03/04/23 14:10 03/04/23 16:07 Temperature 96.8 F L Temperature Source Temporal Pulse Rate 82 Respiratory Rate 17 Respiratory Effort Normal Non-Labored Respiratory Pattern Normal Blood Pressure 124/97 H Blood Pressure Mean 106 Pulse Ox 98 Oxygen Delivery Method Room Air Positive well nourished General Appearance ED: NAD; Negative for pallor HEENT Reports moist mucous membranes and dry mucous membranes Mouth ED: Yes dry mucous membranes Mouth: dry mucous membranes Eyes PERRL and EOMs intact bilaterally Resp normal respiratory effort and clear to auscultation bilaterally Auscultation: Negative for rales, rhonchi or wheezes Cardio Rate: regular rate Rhythm: regular rhythm Neuro oriented x3 Sensorium / Orientation: alert Motor Exam: strength 5/5 throughout Psych mental status grossly normal Skin General Skin Exam: Negative for jaundice or pallor MDM MDM MDM Narrative Medical decision making narrative: 47-year-old female with cough, congestion, rhinorrhea. Lungs clear to auscultation on exam. Vital signs are stable and she is afebrile. Will obtain a two-view chest x-ray. Does not sound the patient needs lab work. 2 view chest x-ray on my interpretation shows no acute process. Radiology interprets this and agrees. Patient will be sent home with Germaine Jernigan. I recommended Afrin for her nasal congestion. Patient also given Cheratussin to help with sleep. Return precautions discussed. Impression: 1. Viral URI Radiography Diagnostic Testing: Clinical Impression(s) from Imaging Studies Chest X-Ray 03/04/23 16:03 IMPRESSION: No radiographic evidence of acute cardiopulmonary disease. Electronically Signed: Camilo Farr DO at 16:21 EST Reading Location ID and State: [address] [place] [address] Tel [phone], Service support , Discharge Plan Triage Chief Complaint: Cold Sx ED Provider: Bossman Isbell Dx/Rx/DC Orders Instructions: ED Bronchitis, No Antibiotic (Adult) Prescriptions: New benzonatate 100 mg capsule 100 mg PO TID PRN (Reason: cough) Qty: 20 0RF codeine-guaifenesin 10-100 mg/5 mL liquid 5 ml PO Q6H PRN (Reason: cold symptoms) Qty: 120 0RF Afrin (oxymetazoline) 0.05 % mist 2 spray intranasal Q12H PRN (Reason: nasal congestion) 3 Days Qty: 15 0RF No Action carvedilol 12.5 mg tablet 12.5 mg PO BID albuterol sulfate [Ventolin HFA] 90 mcg/actuation HFA aerosol inhaler 2 puff INHALATION Q6H ondansetron HCl [Zofran] 8 mg tablet 8 mg PO .prn pantoprazole [Protonix] 40 mg tablet,delayed release (DR/EC) 40 mg PO DAILY citalopram 40 mg tablet 40 mg PO DAILY Patient Comments: TAKE 1 TABLET BY MOUTH EVERY DAY (DME) compr.stocking,knee,long,large Misc See Rx Instructions .ROUTE .MEDSUPPLY Qty: 2 0RF Rx Instructions: low compression 30 mm or less amitriptyline 50 mg tablet 50 mg PO QHS Patient Comments: TAKE 1 TABLET BY MOUTH EVERY DAY furosemide 20 mg tablet 30 mg PO BID potassium chloride 10 mEq capsule, extended release PO Patient Comments: TAKE 1 CAPSULE BY MOUTH NEEDED IF A FUROSEMIDE/LASIX WAS TOOK THAT DAY (DME) pen needle, diabetic [BD Ultra-Fine Angela Pen Needle] 32 gauge x 5/32 needle See Rx Instructions .ROUTE .MEDSUPPLY Qty: 150 8RF Rx Instructions: 4 times daily gabapentin 300 mg capsule 300 mg PO BID Qty: 60 5RF ferrous sulfate 325 mg (65 mg iron) tablet 325 mg PO DAILY Qty: 30 5RF (DME) FreeStyle Yudy 3 Sensor Device See Rx Instructions .Route Qty: 6 3RF Rx Instructions: As directed Lantus Solostar U-100 Insulin 100 unit/mL (3 mL) insulin pen 80 unit SC DAILY Qty: 24 6RF losartan 100 mg tablet 100 mg PO DAILY Qty: 30 6RF cyclobenzaprine 10 mg tablet 10 mg PO TID PRN (Reason: muscle spasm) Qty: 20 0RF (DME) FreeStyle Yudy 2 Porum Misc See Rx Instructions .ROUTE .MEDSUPPLY Qty: 1 0RF Rx Instructions: As directed glucose 4 gram tablet,chewable 4 g PO Q15M PRN (Reason: hypoglycemia) Qty: 90 3RF Rx Instructions: until symptoms of low blood sugar are controlled levothyroxine 125 mcg tablet 125 mcg PO DAILY Qty: 30 11RF vitamin B complex [B Complex-Vitamin B12] Tablet 1 tab PO DAILY Qty: 30 4RF metformin 1,000 mg tablet 1,000 mg PO DAILY Qty: 180 1RF insulin aspart U-100 [Novolog FlexPen U-100 Insulin] 100 unit/mL (3 mL) insulin pen 40 unit SC TID Qty: 36 6RF Trulicity 3 mg/0.5 mL pen injector 3 mg subcut QWEEK Qty: 2 5RF cholecalciferol (vitamin D3) 1,250 mcg (50,000 unit) capsule 1,250 mcg PO QWEEK Qty: 4 6RF Primary Care Provider: Care Physician,No Primary Referrals: Care Physician,No Primary [Primary Care Provider] - Disposition Disposition: Home, Self Care Capacity Legal [employer] Reflex Medical hold order details:: IF a medical hold is selected below, a suggested order for a MEDICAL HOLD will reflex upon signing the document. Next of kin: [place] law dictates a PRIORITY LIST for identifying legal decision-maker/legal next of kin in the following order (LNOK): 1st: The patient?s legal guardian, if any 2nd: The patient's spouse (if status is questionable, consult Risk Management) 3rd: The patient?s adult child(alyson) (majority, if multiple children) 4th: The patient?s parents 5th: The patient?s adult siblings (majority, if multiple children siblings)
--- NOTE | 2023-03-04 16:03 | RAD_ITS ---
INDICATION: cough EXAMINATION/TECHNIQUE: X-RAY - XR Chest 2 Views COMPARISON: FINDINGS: LINES/DEVICES: None. LUNGS: No consolidation, edema or effusion. No pneumothorax. MEDIASTINUM AND CARDIOVASCULAR STRUCTURES: Cardiac silhouette not enlarged. Central airways and mediastinal contour are unremarkable. BONES AND SOFT TISSUES: Unremarkable. RAD/Chest PA and Lateral IMPRESSION: No radiographic evidence of acute cardiopulmonary disease. Electronically Signed: Camilo Farr DO at 16:21 EST ,
[2023-03-04 16:58] VITALS: BP 170/83; PULSE 76; RESP 20; O2SAT 95
== END 2023-03-04 16:59 | disposition home or self-care (01) ==
PROVIDERS: Emergency Provider Student in an Organized Health Care Education/Training Program; Visit Provider Student in an Organized Health Care Education/Training Program
DX: J06.9 Acute upper respiratory infection, unspecified (principal); E11.9 Type 2 diabetes mellitus without complications; Z79.4 Long term (current) use of insulin; Z87.891 Personal history of nicotine dependence; F32.A Depression, unspecified; E03.9 Hypothyroidism, unspecified; Z79.899 Other long term (current) drug therapy; Z79.84 Long term (current) use of oral hypoglycemic drugs; Z79.85 Long-term (current) use of injectable non-insulin antidiabetic drugs; Z90.49 Acquired absence of other specified parts of digestive tract
CPT/HCPCS: 71046; 99282